=== PATIENT | female | born 1935 | race African-American/Black ===

== ENCOUNTER 2019-02-18 04:07 | Inpatient (IN) | payer MEDICARE, OTHER ==
[~2019-02-18] VITALS: Ht 167.6 cm; Wt 79.4 kg
[~2019-02-18 04:07] MED LIST: ATENOLOL25 MG ORAL; BENICAR40 MG ORAL; DONEPEZIL HCL10 M2 ORAL; PLAVIX75 MG ORAL; SERTRALINE HCL25 MG ORAL; ZOCOR20 MG ORAL
[2019-02-18 06:45] VITALS: BP 189/74
--- NOTE | 2019-02-18 06:45 | NUR ---
NURSE NOTES: Receive pt via ambulance from [facility] (Direct admit). Skin check done, skin intact. Pt in bed, nonverbal. In room air. VSS. B/L forearm IV sites 18g noted & s/l'd. Dumont noted draining yellow urine output, inserted at [place] for acute urinary retention. Dr. Gardiner already put in admission orders. Bed in lowest position, call light within reach. Will continue to monitor.
[2019-02-18] MEDS ORDERED: Miralax 17gm pkt ORAL PRN (07:15)
[2019-02-18] MEDS ORDERED: Albuterol/Ipratropium 3ml neb HHN PRN (07:15)
--- NOTE | 2019-02-18 07:30 | NUR ---
HAND-OFF: Report given to THERESE Zheng. Rounds done.
[2019-02-18 08:00] VITALS: BP 171/70
[2019-02-18 08:16] LABS: BASOPHILS % (AUTO) 0.5 % (0.0-2.0); EOSINOPHILS % (AUTO) 0.4 % (0.0-3.0); HEMATOCRIT 30.5 % (37.0-47.0); HEMOGLOBIN 10.2 G/DL (12.0-16.0); LYMPHOCYTES % (AUTO) 15.6 % (20.0-45.0); MEAN CORPUSCULAR VOLUME 90 FL (80-99); MONOCYTES % (AUTO) 9.3 % (1.0-10.0); NEUTROPHILS % (AUTO) 74.3 % (45.0-75.0); PLATELET COUNT 233 K/UL (150-450); RED BLOOD COUNT 3.38 M/UL (4.20-5.40); RED CELL DISTRIBUTION WIDTH 12.2 % (11.6-14.8); WHITE BLOOD COUNT 9.8 K/UL (4.8-10.8)
[2019-02-18 08:30] LABS: ALANINE AMINOTRANSFERASE 18 U/L (12-78); ALBUMIN 3.2 G/DL (3.4-5.0); ALBUMIN/GLOBULIN RATIO 0.8 (1.0-2.7); ALKALINE PHOSPHATASE 49 U/L (46-116); ANION GAP 10 mmol/L (5-15); ASPARTATE AMINO TRANSFERASE 20 U/L (15-37); BILIRUBIN,TOTAL 0.4 MG/DL (0.2-1.0); BLOOD UREA NITROGEN 27 mg/dL (7-18); CALCIUM 9.1 MG/DL (8.5-10.1); CARBON DIOXIDE 24 MMOL/L (21-32); CHLORIDE 112 MMOL/L (98-107); CREATININE 1.1 MG/DL (0.55-1.30); PHOSPHORUS 2.4 MG/DL (2.5-4.9); POTASSIUM 3.2 MMOL/L (3.5-5.1); SODIUM 146 MMOL/L (136-145)
[2019-02-18] MEDS ORDERED: Sertraline 50mg tab ORAL SCH (09:00)
--- NOTE | 2019-02-18 09:14 | NUR ---
NURSE NOTES: Dr. Gardiner ordered clonidine 0.1mg q6 prn when sbp more than 160. Noted and carried out.
[2019-02-18] MEDS: Donepezil 10mg tab ORAL SCH (09:24)
[2019-02-18] MEDS: Heparin 5000 units/ml inj SUBQ SCH ×2 (09:24→20:46)
[2019-02-18] MEDS: Atenolol 25mg tab ORAL SCH (09:24)
[2019-02-18] MEDS: cefTRIAXone 1 GM in D5W 55 ML IVPB SCH (10:33)
[2019-02-18 11:00] LABS: APPEARANCE,URINE SLIGHTLY CLOUDY; BILIRUBIN, URINE NEGATIVE (NEGATIVE); GLUCOSE, URINE (UA) NEGATIVE (NEGATIVE); KETONES,URINE NEGATIVE (NEGATIVE); LEUKOCYTE ESTERASE ,URINE 3+ (NEGATIVE); NITRITE,URINE NEGATIVE (NEGATIVE); PH,URINE 5 (4.5-8.0); PROTEIN,URINE 2+ (NEGATIVE); UROBILINOGEN,URINE NORMAL MG/DL (0.0-1.0)
[2019-02-18 11:08] LABS: COLOR,URINE YELLOW
[2019-02-18 12:00] VITALS: BP 149/58
--- NOTE | 2019-02-18 12:50 | Consultation ---
History of Present Illness General Date patient seen: Feb 18, 2019 Present Illness HPI 83 y/o F with hx of HTN, Dementia, ?seizure episoe on Jun 2018 is transferred from [place] to [place] on 02/18 for altered mental status and possible seizure activity. Per patient's patient was confused, altered and the he witnessed patient having shaking movements of arms. This happend at night 02/17; during the day patient seemed weaker. No report of fever, chills. n/v/d. Allergies: Coded Allergies: LEVONORGESTREL-ETH ESTRA (Verified Allergy, Unknown, 02/09/11) Medication History Scheduled Atenolol* (Tenormin*), 25 MG ORAL DAILY, (Reported) Clopidogrel Bisulfate* (Plavix*), 75 MG ORAL DAILY, (Reported) Donepezil Hcl* (Donepezil Hcl*), 10 MG ORAL DAILY, (Reported) Olmesartan Medoxomil (Benicar), 40 MG ORAL DAILY, (Reported) Sertraline Hcl* (Sertraline Hcl*), 25 MG ORAL DAILY, (Reported) Simvastatin (Zocor), 20 MG ORAL DAILY, (Reported) Patient History Healthcare decision maker Resuscitation status Full Code Advanced Directive on File Patient History Narrative Pmhx: as above Shx: reviewed Fhx: non contributory Review of Systems All Other Systems: negative except mentioned in HPI Physical Exam Physical Exam Narrative General Appearance: WD/WN Lines, tubes and drains: peripheral HEENT: normocephalic, atraumatic Neck: non-tender, supple Respiratory/Chest: chest wall non-tender, normal breath sounds Cardiovascular/Chest: normal peripheral pulses, normal rate Abdomen: normal bowel sounds Extremities: normal range of motion Last 24 Hour Vital Signs Date Time Temp Pulse Resp B/P (MAP) Pulse Ox O2 Delivery O2 Flow Rate FiO2 02/18/19 12:00 97.1 57 20 149/58 (88) 97 02/18/19 10:33 171/70 02/18/19 09:24 68 171/70 02/18/19 09:00 Room Air 02/18/19 08:00 98.0 68 17 171/70 (103) 99 02/18/19 07:41 Room Air 02/18/19 06:45 98.4 66 16 189/74 (112) 96 Laboratory Tests Test 02/18/19 07:48 02/18/19 10:30 White Blood Count 9.8 K/UL (4.8-10.8) Red Blood Count 3.38 M/UL (4.20-5.40) L Hemoglobin 10.2 G/DL (12.0-16.0) L Hematocrit 30.5 % (37.0-47.0) L Mean Corpuscular Volume 90 FL (80-99) Mean Corpuscular Hemoglobin 30.3 PG (27.0-31.0) Mean Corpuscular Hemoglobin Concent 33.6 G/DL (32.0-36.0) Red Cell Distribution Width 12.2 % (11.6-14.8) Platelet Count 233 K/UL (150-450) Mean Platelet Volume 4.8 FL (6.5-10.1) L Neutrophils (%) (Auto) 74.3 % (45.0-75.0) Lymphocytes (%) (Auto) 15.6 % (20.0-45.0) L Monocytes (%) (Auto) 9.3 % (1.0-10.0) Eosinophils (%) (Auto) 0.4 % (0.0-3.0) Basophils (%) (Auto) 0.5 % (0.0-2.0) Erythrocyte Sedimentation Rate 74 MM/HR (0-30) H Sodium Level 146 MMOL/L (136-145) H Potassium Level 3.2 MMOL/L (3.5-5.1) L Chloride Level 112 MMOL/L (98-107) H Carbon Dioxide Level 24 MMOL/L (21-32) Anion Gap 10 mmol/L (5-15) Blood Urea Nitrogen 27 mg/dL (7-18) H Creatinine 1.1 MG/DL (0.55-1.30) Estimat Glomerular Filtration Rate mL/min (>60) Glucose Level 110 MG/DL (74-106) H Calcium Level 9.1 MG/DL (8.5-10.1) Phosphorus Level 2.4 MG/DL (2.5-4.9) L Magnesium Level 1.9 MG/DL (1.8-2.4) Total Bilirubin 0.4 MG/DL (0.2-1.0) Aspartate Amino Transf (AST/SGOT) 20 U/L (15-37) Alanine Aminotransferase (ALT/SGPT) 18 U/L (12-78) Alkaline Phosphatase 49 U/L (46-116) C-Reactive Protein, Quantitative 1.6 mg/dL (0.00-0.90) H Total Protein 7.4 G/DL (6.4-8.2) Albumin 3.2 G/DL (3.4-5.0) L Globulin 4.2 g/dL Albumin/Globulin Ratio 0.8 (1.0-2.7) L Urine Color Yellow Urine Appearance Slightly cloudy Urine pH 5 (4.5-8.0) Urine Specific [place] 1.020 (1.005-1.035) Urine Protein 2+ (NEGATIVE) H Urine Glucose (UA) Negative (NEGATIVE) Urine Ketones Negative (NEGATIVE) Urine Blood 4+ (NEGATIVE) H Urine Nitrite Negative (NEGATIVE) Urine Bilirubin Negative (NEGATIVE) Urine Urobilinogen Normal MG/DL (0.0-1.0) Urine Leukocyte Esterase 3+ (NEGATIVE) H Urine RBC 5-10 /HPF (0 - 2) H Urine WBC 30-40 /HPF (0 - 2) H Urine Squamous Epithelial Cells Few /LPF (NONE/OCC) Urine Bacteria Few /HPF (NONE) Height (Feet): 5 Height (Inches): 6.00 Weight (Pounds): 175 Medications Current Medications Medications (Trade) Dose Ordered Sig/Gustavo Route PRN Reason Start Time Stop Time Status Last Admin Dose Admin Acetaminophen (Tylenol) 650 mg Q4H PRN ORAL fever 02/18/19 07:15 03/20/19 07:14 Albuterol/ Ipratropium (Albuterol/ Ipratropium) 3 ml Q4H PRN HHN Shortness of Breath 02/18/19 07:15 02/23/19 07:14 Atenolol (Tenormin) 25 mg DAILY ORAL 02/18/19 09:00 03/20/19 08:59 02/18/19 09:24 Ceftriaxone Sodium 1 gm/ Dextrose 55 ml @ 110 mls/hr Q24H IVPB 02/18/19 09:00 02/25/19 08:59 02/18/19 10:33 Clonidine HCl (Catapres Tab) 0.1 mg Q6H PRN ORAL SBP MORE THAN 160 02/18/19 10:15 03/20/19 10:14 02/18/19 10:33 Donepezil HCl (Aricept) 10 mg DAILY ORAL 02/18/19 09:00 03/20/19 08:59 02/18/19 09:24 Heparin Sodium (Porcine) (Heparin 5000 units/ml) 5,000 units EVERY 12 HOURS SUBQ 02/18/19 09:00 03/20/19 08:59 02/18/19 09:24 Ondansetron HCl (Zofran) 4 mg Q6H PRN IVP Nausea & Vomiting 02/18/19 07:15 03/20/19 07:14 Phenazopyridine HCl (Pyridium) 100 mg DAILY PRN ORAL dysuria 02/18/19 07:15 03/20/19 07:14 Polyethylene Glycol (Miralax) 17 gm DAILYPRN PRN ORAL Constipation 02/18/19 07:15 03/20/19 07:14 Sertraline HCl (Zoloft) 25 mg DAILY ORAL 02/18/19 09:00 03/20/19 08:59 02/18/19 09:24 Temazepam (Restoril) 15 mg HSPRN PRN ORAL Insomnia 02/18/19 07:15 02/25/19 07:14 Assessment/Plan Assessment/Plan: Abx: Ceftriaxone 02/18- Assessment: ?Seizure episode Probable UTI -u/a wbc 30-40, nit neg, leuk +3 Afebrile No leukocytosis Acute on chronic encephalopathy HTN Dementia Plan: -Continue empiric Ceftriaxone #1 pending urine culture -f/u cx -Monitor CBC/CMP, temperatures -aspiration precautions Thank you for this consultation. Will continue to follow along with you. Discussed with Erica Edwards M.D. Feb 18, 2019 12:50
--- NOTE | 2019-02-18 12:56 | Consultation ---
History of Present Illness General Date patient seen: Feb 18, 2019 Present Illness HPI 83 year old female with hx of end stage dementia, aphasic, htn, CVA, bed bound was taken to [place] with CC of seizure like activity of upper body. Pt is a poor historian. Pts daughter is at the bed site, who herself was NOT present when this happened. She had a change of mental status when this happened. Pt is wake now, smiling without understanding what is going on in her environment. Allergies: Coded Allergies: LEVONORGESTREL-ETH ESTRA (Verified Allergy, Unknown, 02/09/11) Medication History Scheduled Atenolol* (Tenormin*), 25 MG ORAL DAILY, (Reported) Clopidogrel Bisulfate* (Plavix*), 75 MG ORAL DAILY, (Reported) Donepezil Hcl* (Donepezil Hcl*), 10 MG ORAL DAILY, (Reported) Olmesartan Medoxomil (Benicar), 40 MG ORAL DAILY, (Reported) Sertraline Hcl* (Sertraline Hcl*), 25 MG ORAL DAILY, (Reported) Simvastatin (Zocor), 20 MG ORAL DAILY, (Reported) Patient History Healthcare decision maker Resuscitation status Full Code Advanced Directive on File Past Medical/Surgical History Past Medical/Surgical History: (1) HTN (hypertension) (2) COPD (3) arteriosclerosis Review of Systems All Other Systems: negative except mentioned in HPI Physical Exam General Appearance: WD/WN Lines, tubes and drains: peripheral HEENT: normocephalic, atraumatic Neck: non-tender, supple Respiratory/Chest: chest wall non-tender, normal breath sounds Breasts: no masses Cardiovascular/Chest: normal peripheral pulses, normal rate Abdomen: normal bowel sounds Genitourinary/Rectal: normal genital exam Extremities: normal range of motion Last 24 Hour Vital Signs Date Time Temp Pulse Resp B/P (MAP) Pulse Ox O2 Delivery O2 Flow Rate FiO2 02/18/19 12:00 97.1 57 20 149/58 (88) 97 02/18/19 10:33 171/70 02/18/19 09:24 68 171/70 02/18/19 09:00 Room Air 02/18/19 08:00 98.0 68 17 171/70 (103) 99 02/18/19 07:41 Room Air 9/6/19 06:45 98.4 66 16 189/74 (112) 96 Laboratory Tests Test 02/18/19 07:48 02/18/19 10:30 White Blood Count 9.8 K/UL (4.8-10.8) Red Blood Count 3.38 M/UL (4.20-5.40) L Hemoglobin 10.2 G/DL (12.0-16.0) L Hematocrit 30.5 % (37.0-47.0) L Mean Corpuscular Volume 90 FL (80-99) Mean Corpuscular Hemoglobin 30.3 PG (27.0-31.0) Mean Corpuscular Hemoglobin Concent 33.6 G/DL (32.0-36.0) Red Cell Distribution Width 12.2 % (11.6-14.8) Platelet Count 233 K/UL (150-450) Mean Platelet Volume 4.8 FL (6.5-10.1) L Neutrophils (%) (Auto) 74.3 % (45.0-75.0) Lymphocytes (%) (Auto) 15.6 % (20.0-45.0) L Monocytes (%) (Auto) 9.3 % (1.0-10.0) Eosinophils (%) (Auto) 0.4 % (0.0-3.0) Basophils (%) (Auto) 0.5 % (0.0-2.0) Erythrocyte Sedimentation Rate 74 MM/HR (0-30) H Sodium Level 146 MMOL/L (136-145) H Potassium Level 3.2 MMOL/L (3.5-5.1) L Chloride Level 112 MMOL/L (98-107) H Carbon Dioxide Level 24 MMOL/L (21-32) Anion Gap 10 mmol/L (5-15) Blood Urea Nitrogen 27 mg/dL (7-18) H Creatinine 1.1 MG/DL (0.55-1.30) Estimat Glomerular Filtration Rate mL/min (>60) Glucose Level 110 MG/DL (74-106) H Calcium Level 9.1 MG/DL (8.5-10.1) Phosphorus Level 2.4 MG/DL (2.5-4.9) L Magnesium Level 1.9 MG/DL (1.8-2.4) Total Bilirubin 0.4 MG/DL (0.2-1.0) Aspartate Amino Transf (AST/SGOT) 20 U/L (15-37) Alanine Aminotransferase (ALT/SGPT) 18 U/L (12-78) Alkaline Phosphatase 49 U/L (46-116) C-Reactive Protein, Quantitative 1.6 mg/dL (0.00-0.90) H Total Protein 7.4 G/DL (6.4-8.2) Albumin 3.2 G/DL (3.4-5.0) L Globulin 4.2 g/dL Albumin/Globulin Ratio 0.8 (1.0-2.7) L Urine Color Yellow Urine Appearance Slightly cloudy Urine pH 5 (4.5-8.0) Urine Specific [place] 1.020 (1.005-1.035) Urine Protein 2+ (NEGATIVE) H Urine Glucose (UA) Negative (NEGATIVE) Urine Ketones Negative (NEGATIVE) Urine Blood 4+ (NEGATIVE) H Urine Nitrite Negative (NEGATIVE) Urine Bilirubin Negative (NEGATIVE) Urine Urobilinogen Normal MG/DL (0.0-1.0) Urine Leukocyte Esterase 3+ (NEGATIVE) H Urine RBC 5-10 /HPF (0 - 2) H Urine WBC 30-40 /HPF (0 - 2) H Urine Squamous Epithelial Cells Few /LPF (NONE/OCC) Urine Bacteria Few /HPF (NONE) Height (Feet): 5 Height (Inches): 6.00 Weight (Pounds): 175 Medications Current Medications Medications (Trade) Dose Ordered Sig/Gustavo Route PRN Reason Start Time Stop Time Status Last Admin Dose Admin Acetaminophen (Tylenol) 650 mg Q4H PRN ORAL fever 02/18/19 07:15 03/20/19 07:14 Albuterol/ Ipratropium (Albuterol/ Ipratropium) 3 ml Q4H PRN HHN Shortness of Breath 02/18/19 07:15 02/23/19 07:14 Atenolol (Tenormin) 25 mg DAILY ORAL 02/18/19 09:00 03/20/19 08:59 02/18/19 09:24 Ceftriaxone Sodium 1 gm/ Dextrose 55 ml @ 110 mls/hr Q24H IVPB 02/18/19 09:00 02/25/19 08:59 02/18/19 10:33 Clonidine HCl (Catapres Tab) 0.1 mg Q6H PRN ORAL SBP MORE THAN 160 02/18/19 10:15 03/20/19 10:14 02/18/19 10:33 Donepezil HCl (Aricept) 10 mg DAILY ORAL 02/18/19 09:00 03/20/19 08:59 02/18/19 09:24 Heparin Sodium (Porcine) (Heparin 5000 units/ml) 5,000 units EVERY 12 HOURS SUBQ 02/18/19 09:00 03/20/19 08:59 02/18/19 09:24 Ondansetron HCl (Zofran) 4 mg Q6H PRN IVP Nausea & Vomiting 02/18/19 07:15 03/20/19 07:14 Phenazopyridine HCl (Pyridium) 100 mg DAILY PRN ORAL dysuria 02/18/19 07:15 03/20/19 07:14 Polyethylene Glycol (Miralax) 17 gm DAILYPRN PRN ORAL Constipation 02/18/19 07:15 03/20/19 07:14 Sertraline HCl (Zoloft) 25 mg DAILY ORAL 02/18/19 09:00 03/20/19 08:59 02/18/19 09:24 Temazepam (Restoril) 15 mg HSPRN PRN ORAL Insomnia 02/18/19 07:15 02/25/19 07:14 Assessment/Plan Problem List: (1) UTI (urinary tract infection) ICD Codes: N39.0 - Urinary tract infection, site not specified SNOMED: 85999906 (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
--- NOTE | 2019-02-18 13:17 | NUR ---
NURSE NOTES: K+ is 3.2. Dr. Gardiner is aware.
--- NOTE | 2019-02-18 13:18 | NUR ---
CASE MANAGEMENT:REVIEW DIRECT ADMIT FROM [facility] SI: ACUTE METABOLIC ENCEPHALOPATHY TONIC CLONIC SEIZURE 97.1 57 20 149/58 97% ON RA h/h-10.2/30.5 K-3.2 BUN+27 IS: ATENOLOL PO QD ARICEPT PO QD ZOLOFT PO QD HEPARIN SQ Q12 IV ROCEPHIN Q24 : MED/SURG STATUS PLAN: SEIZURE PRECAUTIONS NEURO CHECKS Q4HRS
--- NOTE | 2019-02-18 15:52 | History & Physical ---
History and Physical History & Physicial Jose Guadalupe Marlow MD Feb 18, 2019 15:52
[2019-02-18 16:00] VITALS: BP 160/64
[2019-02-18] MEDS ORDERED: KCL IV SCH (16:00)
[2019-02-18] MEDS ORDERED: D5 IV SCH (16:00)
[2019-02-18] MEDS ORDERED: [UNRECOGNIZED DRUG - OTHER] IV SCH (16:00)
--- NOTE | 2019-02-18 16:00 | NUR ---
NURSE NOTES: Patient is off the unit for MRI of brain.
--- NOTE | 2019-02-18 16:38 | NUR ---
NURSE NOTES: Got phone call from radiology regarding that pt has small stroke on left side per MRI of brain. Dr. Marlow was notified and MD ordered aspirin 81mg daily, bedside swallow study. Noted and carried out.
--- NOTE | 2019-02-18 16:48 | Diagnostic Imaging Report ---
Indication: Altered mental status Technique: The head was imaged in a 1.5 Kylee magnet. Sequences obtained include sagittal and axial T1 FLAIR, axial T2 fast spin echo with fat saturation, axial T2 FLAIR, diffusion and ADC map. Comparison: None There is a less than 1 cm focus of diffusion restriction within the left occipital region. This is not associated with any significant edema or mass effect. There is moderate atrophy of the brain and fairly extensive white matter T2 hyperintense signal. There is no acute bleed. There is mucosal thickening within the ethmoid sinus. Corpus callosum and sella appear normal. Osseous bone marrow signal appears unremarkable. IMPRESSION: Tiny acute CVA in the left occipital white matter. No significant mass effect or edema. No evidence of hemorrhage. Moderate atrophy of the brain. Extensive chronic small vessel disease involving periventricular white matter. Critical value communication. Findings were discussed via telephone with floor nurse on 3 E. 4:40 PM 02/18/2019. The referring physician will be notified of the results.
--- NOTE | 2019-02-18 16:48 | NUR ---
NURSE NOTES: Patient came back from MRI of brain.
[2019-02-18] MEDS ORDERED: Potassium Phosphate 15 MM in NS 275 ML IV ONE (17:00)
--- NOTE | 2019-02-18 17:30 | History and Physical Report ---
DATE OF ADMISSION: 02/18/2019 CHIEF COMPLAINT: Altered mental status. HISTORY OF PRESENT ILLNESS: This is an 83-year-old very delightful female with past medical history significant for hypertension, dyslipidemia, prior history of stroke, and Alzheimer dementia, who has presented initially to [facility] after had complained about altered mental status. The patient had a history of seizure, 1 episode in December and presented to the emergency room with altered mental status. The patient had a negative workup, returned back to the baseline mentation. The patient tonight was witnessed in the bed having a seizure-like activity, tonic clonic activity of bilateral upper extremity. After the seizure-like activity, the patient had become more altered. called 911 and EMS checked the blood glucose that was initially 130 and then subsequently, the patient was transferred to the emergency room. Shortly after initial evaluation in the emergency department at [facility], the patient was worked up for altered mental status possibly due to the seizure activity versus urinary tract infection. PAST MEDICAL HISTORY/PAST SURGICAL HISTORY: As above. History of hypertension, dyslipidemia, stroke, dementia, ? history of seizure disorder x1 episode in June of 2018. MEDICATIONS: At home significant for atenolol, Plavix, Aricept, Benicar, sertraline, and simvastatin. ALLERGIES: Levonorgestrel. SOCIAL HISTORY: No smoking, alcohol, or drugs. FAMILY HISTORY: Noncontributory. REVIEW OF SYSTEMS: Very limited secondary to the patient's status. She is altered, however, as per emergency physician documentation no fever or chills was noted. PHYSICAL EXAMINATION: VITAL SIGNS: On admission from [place], blood pressure 146/78, pulse of 76, respirations 20, and temperature 98.8. GENERAL: The patient is sleepy, not responsive, and cannot follow commands. HEAD AND NECK: Pupils are reactive to light. Anicteric. Neck was supple. No JVD. LUNGS: Good air entry. No wheezing or rales. Decreased air in the bases. HEART: S1, S2. Regular rhythm. Systolic ejection murmur in the left sternal border was noted. ABDOMEN: Soft, nondistended, and nontender. Positive bowel sounds. EXTREMITIES: No cyanosis, clubbing, or edema. NEUROLOGIC: Limited secondary to the patient's status. The patient is unable to follow commands. However, she does withdraw from pain and sensory, unable to obtain or motor. The patient is spontaneously moving extremities still. LABORATORY DATA: Laboratory from admission to [facility] was noted to have sodium 146, potassium 3.2, chloride 112, bicarb 24, BUN 27, creatinine 1.1, glucose is 110, calcium is 9.1, phosphorus 2.4. Magnesium is 1.9. AST of 20, ALT of 18, and alkaline phosphatase 49. Total protein 7.4. UA is +2 protein, +4 blood, +3 leukocytes, 5 to 10 rbc, 30 to 40 wbc. WBC of 9.8, hemoglobin 10, hematocrit 30, and platelets is 233,000. The patient had a imaging study done at [facility], which noted that CT of the head was essentially unremarkable. EKG was done at [facility] noted normal sinus rhythm, ventricular rate 74, left atrial fascicular block, and left ventricular hypertrophy. Q-wave was noted in leads [address]-elevation was identified. ASSESSMENT: 1. Altered mental status, most likely secondary to toxic metabolic encephalopathy most likely secondary to infection such as urinary tract infection, however, cannot rule out recurrent seizure. 2. Hypertension. 3. Acute UTI. 4. Dyslipidemia. 5. Alzheimer dementia. PLAN: Admit the patient to medical floor. We will follow up with Dr. Gardiner's recommendation from Pulmonary Critical Care and Dr. Brown from Infectious Disease. Follow up with the cultures. Broad-spectrum antibiotic Rocephin was started. Code status at this time is Full Code and we will monitor. We will consider getting an MRI of the brain. Jose Guadalupe Marlow M.D. DR: MIKE JOB#: [id number] CC:
[2019-02-18 18:32] VITALS: BP 152/57
--- NOTE | 2019-02-18 19:33 | NUR ---
HAND-OFF: Report given to THERESE Cerna.
--- NOTE | 2019-02-18 19:35 | NUR ---
NURSE NOTES: Received report from THERESE Giles and rounds made with outgoing nurse. Received pt in bed, sleeping, arousable by tactile stimuli, awake, open eyes, non-verbal, no distress noted, at bedside. IV L FA and R FA patent and intact. Dumont inplace draining yellow color output. Bed in lowest position and locked, side rails up x 2, call light within reach. Will continue to monitor.
[2019-02-18 20:00] VITALS: BP 168/54
--- NOTE | 2019-02-18 20:40 | NUR ---
NURSE NOTES: B/P 168/54, hr 50 no distress noted. Clonidine 0.1mg PO every 6 hours last given at 1727, not due yet. Paged Dr. Gardiner, awaiting for reply.
--- NOTE | 2019-02-18 21:15 | NUR ---
NURSE NOTES: Dr. Gardiner responded, no orders given, he just said "okay". Will continue to monitor.
--- NOTE | 2019-02-18 23:46 | NUR ---
NURSE NOTES: B/P 176/62, HR 53, no distress noted. Clonidine 0.1mg PO given. Will continue to monitor.
[2019-02-19] VITALS (10 sets, daily range): BP systolic 159–191; BP diastolic 55–71
--- NOTE | 2019-02-19 05:40 | NUR ---
NURSE NOTES: B/P 163/60, HR 57 no distress noted. Clonidine 0.1mg PO given. Will continue to monitor.
[2019-02-19 06:47] LABS: BASOPHILS % (AUTO) 1.3 % (0.0-2.0); EOSINOPHILS % (AUTO) 2.4 % (0.0-3.0); HEMATOCRIT 30.1 % (37.0-47.0); HEMOGLOBIN 9.5 G/DL (12.0-16.0); LYMPHOCYTES % (AUTO) 33.6 % (20.0-45.0); MEAN CORPUSCULAR VOLUME 93 FL (80-99); MONOCYTES % (AUTO) 8.5 % (1.0-10.0); NEUTROPHILS % (AUTO) 54.2 % (45.0-75.0); PLATELET COUNT 215 K/UL (150-450); RED BLOOD COUNT 3.24 M/UL (4.20-5.40); RED CELL DISTRIBUTION WIDTH 12.5 % (11.6-14.8); WHITE BLOOD COUNT 7.2 K/UL (4.8-10.8)
--- NOTE | 2019-02-19 06:50 | NUR ---
NURSE NOTES: Rec-check B/P 159/62. HR 54. Pt is awake, no distress noted. Will continue to monitor.
--- NOTE | 2019-02-19 07:00 | NUR ---
NURSE NOTES: Received call from the lab Troponin level 0.068. Paged Dr. Gardiner, awaiting for call back. Will endorse to next nurse.
[2019-02-19 07:05] LABS: ALANINE AMINOTRANSFERASE 18 U/L (12-78); ALBUMIN 3.1 G/DL (3.4-5.0); ALBUMIN/GLOBULIN RATIO 0.8 (1.0-2.7); ALKALINE PHOSPHATASE 39 U/L (46-116); ANION GAP 10 mmol/L (5-15); ASPARTATE AMINO TRANSFERASE 25 U/L (15-37); BILIRUBIN,TOTAL 0.4 MG/DL (0.2-1.0); BLOOD UREA NITROGEN 27 mg/dL (7-18); CALCIUM 9.2 MG/DL (8.5-10.1); CARBON DIOXIDE 25 MMOL/L (21-32); CHLORIDE 115 MMOL/L (98-107); CREATININE 1.1 MG/DL (0.55-1.30); POTASSIUM 3.7 MMOL/L (3.5-5.1); SODIUM 150 MMOL/L (136-145)
[2019-02-19 07:08] LABS: PHOSPHORUS 3.4 MG/DL (2.5-4.9)
--- NOTE | 2019-02-19 07:10 | NUR ---
NURSE NOTES: Dr. Gardiner replied no order given, he said "okay". Will endorse to next nurse.
--- NOTE | 2019-02-19 07:12 | Pulmonology Progress Note ---
Assessment/Plan Problems: (1) UTI (urinary tract infection) (2) Tonic clonic seizures (3) Acute metabolic encephalopathy (4) COPD (5) HTN (hypertension) Assessment/Plan no new complains check cultures respiratory treatment monitor BP dvt prophylaxis Subjective ROS Limited/Unobtainable: No Allergies: Coded Allergies: LEVONORGESTREL-ETH ESTRA (Verified Allergy, Unknown, 02/09/11) Objective Last 24 Hour Vital Signs Date Time Temp Pulse Resp B/P (MAP) Pulse Ox O2 Delivery O2 Flow Rate FiO2 02/19/19 06:50 54 159/62 (94) 02/19/19 06:02 163/60 02/19/19 05:40 97.9 57 17 163/60 (94) 98 02/19/19 01:00 54 162/56 (91) 02/19/19 00:00 98.7 53 17 179/62 (101) 99 02/18/19 23:40 179/62 02/18/19 21:00 Room Air 02/18/19 20:00 98.1 50 16 168/54 (92) 96 02/18/19 18:32 56 152/57 (88) 02/18/19 17:27 160/64 02/18/19 16:00 98.2 59 17 160/64 (96) 97 02/18/19 12:00 97.1 57 20 149/58 (88) 97 02/18/19 10:33 171/70 02/18/19 09:24 68 171/70 02/18/19 09:00 Room Air 02/18/19 08:00 98.0 68 17 171/70 (103) 99 02/18/19 07:41 Room Air Intake and Output 02/18/19 02/19/19 19:00 07:00 Intake Total 536.667 ml 958.335 ml Output Total 300 ml 300 ml Balance 236.667 ml 658.335 ml Intake Oral 360 ml 50 ml IV Total 176.667 ml 908.335 ml Output Urine Total 300 ml 300 ml General Appearance: WD/WN HEENT: atraumatic, anicteric Respiratory/Chest: chest wall non-tender, lungs clear Breasts: no masses Cardiovascular: normal peripheral pulses Abdomen: normal bowel sounds, soft, non tender, no scars Microbiology Date/Time Source Procedure Growth Status 02/18/19 10:30 Urine,Clean Catch Urine Culture - Preliminary NO GROWTH AFTER 24 HOURS Resulted Laboratory Tests 02/18/19 07:48: White Blood Count 9.8, Red Blood Count 3.38L, Hemoglobin 10.2L, Hematocrit 30.5L , Mean Corpuscular Volume 90, Mean Corpuscular Hemoglobin 30.3, Mean Corpuscular Hemoglobin Concent 33.6, Red Cell Distribution Width 12.2, Platelet Count 233, Mean Platelet Volume 4.8L, Neutrophils (%) (Auto) 74.3, Lymphocytes ( %) (Auto) 15.6L, Monocytes (%) (Auto) 9.3, Eosinophils (%) (Auto) 0.4, Basophils (%) (Auto) 0.5, Erythrocyte Sedimentation Rate 74H, Sodium Level 146H , Potassium Level 3.2L, Chloride Level 112H, Carbon Dioxide Level 24, Anion Gap 10, Blood Urea Nitrogen 27H, Creatinine 1.1, Estimat Glomerular Filtration Rate , Glucose Level 110H, Calcium Level 9.1, Phosphorus Level 2.4L, Magnesium Level 1.9, Total Bilirubin 0.4, Aspartate Amino Transf (AST/SGOT) 20, Alanine Aminotransferase (ALT/SGPT) 18, Alkaline Phosphatase 49, C-Reactive Protein, Quantitative 1.6H, Total Protein 7.4, Albumin 3.2L, Globulin 4.2, Albumin/ Globulin Ratio 0.8L 02/18/19 10:30: Urine Color Yellow, Urine Appearance Slightly cloudy, Urine pH 5, Urine Specific [place] 1.020, Urine Protein 2+H, Urine Glucose (UA) Negative, Urine Ketones Negative, Urine Blood 4+H, Urine Nitrite Negative, Urine Bilirubin Negative, Urine Urobilinogen Normal, Urine Leukocyte Esterase 3+H, Urine RBC 5- 10H, Urine WBC 30-40H, Urine Squamous Epithelial Cells Few, Urine Bacteria Few 02/19/19 05:25: White Blood Count 7.2, Red Blood Count 3.24L, Hemoglobin 9.5L, Hematocrit 30.1L , Mean Corpuscular Volume 93, Mean Corpuscular Hemoglobin 29.3, Mean Corpuscular Hemoglobin Concent 31.6L, Red Cell Distribution Width 12.5, Platelet Count 215, Mean Platelet Volume 4.9L, Neutrophils (%) (Auto) 54.2, Lymphocytes (%) (Auto) 33.6, Monocytes (%) (Auto) 8.5, Eosinophils (%) (Auto) 2.4, Basophils (%) (Auto) 1.3, Sodium Level 150H, Potassium Level 3.7, Chloride Level 115H, Carbon Dioxide Level 25, Anion Gap 10, Blood Urea Nitrogen 27H, Creatinine 1.1, Estimat Glomerular Filtration Rate , Glucose Level 101, Calcium Level 9.2, Phosphorus Level 3.4, Magnesium Level 2.1, Total Bilirubin 0.4, Aspartate Amino Transf (AST/SGOT) 25, Alanine Aminotransferase (ALT/SGPT) 18, Alkaline Phosphatase 39L, Total Protein 6.9, Albumin 3.1L, Globulin 3.8, Albumin /Globulin Ratio 0.8L, Troponin I 0.068H Current Medications Medications (Trade) Dose Ordered Sig/Gustavo Route PRN Reason Start Time Stop Time Status Last Admin Dose Admin Acetaminophen (Tylenol) 650 mg Q4H PRN ORAL fever 02/18/19 07:15 03/20/19 07:14 Albuterol/ Ipratropium (Albuterol/ Ipratropium) 3 ml Q4H PRN HHN Shortness of Breath 02/18/19 07:15 02/23/19 07:14 Aspirin (ASA) 81 mg DAILY ORAL 02/19/19 09:00 03/21/19 08:59 Atenolol (Tenormin) 25 mg DAILY ORAL 02/18/19 09:00 03/20/19 08:59 02/18/19 09:24 Ceftriaxone Sodium 1 gm/ Dextrose 55 ml @ 110 mls/hr Q24H IVPB 02/18/19 09:00 02/25/19 08:59 02/18/19 10:33 Clonidine HCl (Catapres Tab) 0.1 mg Q6H PRN ORAL SBP MORE THAN 160 02/18/19 10:15 03/20/19 10:14 02/19/19 06:02 Donepezil HCl (Aricept) 10 mg DAILY ORAL 02/18/19 09:00 03/20/19 08:59 02/18/19 09:24 Heparin Sodium (Porcine) (Heparin 5000 units/ml) 5,000 units EVERY 12 HOURS SUBQ 02/18/19 09:00 03/20/19 08:59 02/18/19 20:46 Ondansetron HCl (Zofran) 4 mg Q6H PRN IVP Nausea & Vomiting 02/18/19 07:15 03/20/19 07:14 Phenazopyridine HCl (Pyridium) 100 mg DAILY PRN ORAL dysuria 02/18/19 07:15 03/20/19 07:14 Polyethylene Glycol (Miralax) 17 gm DAILYPRN PRN ORAL Constipation 02/18/19 07:15 03/20/19 07:14 Temazepam (Restoril) 15 mg HSPRN PRN ORAL Insomnia 02/18/19 07:15 02/25/19 07:14 Chanel Gardiner MD Feb 19, 2019 07:12
--- NOTE | 2019-02-19 07:30 | NUR ---
HAND-OFF: Report given to THERESE Noel. Pt in stable condition.
--- NOTE | 2019-02-19 07:35 | NUR ---
NURSE NOTES: Patient lying in bed awake. No complain of pain or distress at this time. IV dressing intact and dry. Dumont catheter patent and draining well. Bed lowest position. Call light within reach. Will continue to monitor.
[2019-02-19] MEDS: Donepezil 10mg tab ORAL SCH (09:55)
[2019-02-19] MEDS: Atenolol 25mg tab ORAL SCH (09:55)
[2019-02-19] MEDS: Aspirin Baby 81mg ORAL SCH (09:55)
[2019-02-19] MEDS: cefTRIAXone 1 GM in D5W 55 ML IVPB SCH (09:56)
[2019-02-19] MEDS: Heparin 5000 units/ml inj SUBQ SCH ×2 (09:57→20:31)
--- NOTE | 2019-02-19 12:11 | Infectious Diseases Prog Note ---
Assessment/Plan Assessment/Plan Abx: Ceftriaxone 02/18- Assessment: ?Seizure episode Probable UTI -u/a wbc 30-40, nit neg, leuk +3 Afebrile No leukocytosis Acute on chronic encephalopathy HTN Dementia Plan: -Continue empiric Ceftriaxone #2/3 pending urine culture -f/u cx -Monitor CBC/CMP, temperatures -aspiration precautions Thank you for this consultation. Will continue to follow along with you. Subjective Allergies: Coded Allergies: LEVONORGESTREL-ETH ESTRA (Verified Allergy, Unknown, 02/09/11) Subjective Afebrile No Leukocytosis WBCs down to 7 Objective Vital Signs Last 24 Hour Vital Signs Date Time Temp Pulse Resp B/P (MAP) Pulse Ox O2 Delivery O2 Flow Rate FiO2 02/19/19 09:55 51 174/59 02/19/19 09:00 Room Air 02/19/19 08:00 97.1 51 18 174/59 (97) 97 02/19/19 06:50 54 159/62 (94) 02/19/19 06:02 163/60 02/19/19 05:40 97.9 57 17 163/60 (94) 98 02/19/19 01:00 54 162/56 (91) 02/19/19 00:00 98.7 53 17 179/62 (101) 99 02/18/19 23:40 179/62 02/18/19 21:00 Room Air 02/18/19 20:00 98.1 50 16 168/54 (92) 96 02/18/19 18:32 56 152/57 (88) 02/18/19 17:27 160/64 02/18/19 16:00 98.2 59 17 160/64 (96) 97 Height (Feet): 5 Height (Inches): 6.00 Weight (Pounds): 175 Objective General Appearance: NAD HEENT: normocephalic, atraumatic, MMM, EOMI Respiratory/Chest: CTAB , No W Cardiovascular/Chest: RRR, S,1 S2 Abdomen: normal bowel sounds, Soft , Not tender Microbiology Date/Time Source Procedure Growth Status 02/18/19 10:30 Urine,Clean Catch Urine Culture - Preliminary NO GROWTH AFTER 24 HOURS Resulted Laboratory Tests Test 02/19/19 05:25 White Blood Count 7.2 K/UL (4.8-10.8) Red Blood Count 3.24 M/UL (4.20-5.40) L Hemoglobin 9.5 G/DL (12.0-16.0) L Hematocrit 30.1 % (37.0-47.0) L Mean Corpuscular Volume 93 FL (80-99) Mean Corpuscular Hemoglobin 29.3 PG (27.0-31.0) Mean Corpuscular Hemoglobin Concent 31.6 G/DL (32.0-36.0) L Red Cell Distribution Width 12.5 % (11.6-14.8) Platelet Count 215 K/UL (150-450) Mean Platelet Volume 4.9 FL (6.5-10.1) L Neutrophils (%) (Auto) 54.2 % (45.0-75.0) Lymphocytes (%) (Auto) 33.6 % (20.0-45.0) Monocytes (%) (Auto) 8.5 % (1.0-10.0) Eosinophils (%) (Auto) 2.4 % (0.0-3.0) Basophils (%) (Auto) 1.3 % (0.0-2.0) Sodium Level 150 MMOL/L (136-145) H Potassium Level 3.7 MMOL/L (3.5-5.1) Chloride Level 115 MMOL/L (98-107) H Carbon Dioxide Level 25 MMOL/L (21-32) Anion Gap 10 mmol/L (5-15) Blood Urea Nitrogen 27 mg/dL (7-18) H Creatinine 1.1 MG/DL (0.55-1.30) Estimat Glomerular Filtration Rate mL/min (>60) Glucose Level 101 MG/DL (74-106) Calcium Level 9.2 MG/DL (8.5-10.1) Phosphorus Level 3.4 MG/DL (2.5-4.9) Magnesium Level 2.1 MG/DL (1.8-2.4) Total Bilirubin 0.4 MG/DL (0.2-1.0) Aspartate Amino Transf (AST/SGOT) 25 U/L (15-37) Alanine Aminotransferase (ALT/SGPT) 18 U/L (12-78) Alkaline Phosphatase 39 U/L (46-116) L Troponin I 0.068 ng/mL (0.000-0.056) Total Protein 6.9 G/DL (6.4-8.2) Albumin 3.1 G/DL (3.4-5.0) L Globulin 3.8 g/dL Albumin/Globulin Ratio 0.8 (1.0-2.7) L Current Medications Medications (Trade) Dose Ordered Sig/Gustavo Route PRN Reason Start Time Stop Time Status Last Admin Dose Admin Acetaminophen (Tylenol) 650 mg Q4H PRN ORAL fever 02/18/19 07:15 03/20/19 07:14 Albuterol/ Ipratropium (Albuterol/ Ipratropium) 3 ml Q4H PRN HHN Shortness of Breath 02/18/19 07:15 02/23/19 07:14 Aspirin (ASA) 81 mg DAILY ORAL 02/19/19 09:00 03/21/19 08:59 02/19/19 09:55 Atenolol (Tenormin) 25 mg DAILY ORAL 02/18/19 09:00 03/20/19 08:59 02/19/19 09:55 Ceftriaxone Sodium 1 gm/ Dextrose 55 ml @ 110 mls/hr Q24H IVPB 02/18/19 09:00 02/25/19 08:59 02/19/19 09:56 Clonidine HCl (Catapres Tab) 0.1 mg Q6H PRN ORAL SBP MORE THAN 160 02/18/19 10:15 03/20/19 10:14 02/19/19 06:02 Donepezil HCl (Aricept) 10 mg DAILY ORAL 02/18/19 09:00 03/20/19 08:59 02/19/19 09:55 Heparin Sodium (Porcine) (Heparin 5000 units/ml) 5,000 units EVERY 12 HOURS SUBQ 02/18/19 09:00 03/20/19 08:59 02/19/19 09:57 Ondansetron HCl (Zofran) 4 mg Q6H PRN IVP Nausea & Vomiting 02/18/19 07:15 03/20/19 07:14 Phenazopyridine HCl (Pyridium) 100 mg DAILY PRN ORAL dysuria 02/18/19 07:15 03/20/19 07:14 Polyethylene Glycol (Miralax) 17 gm DAILYPRN PRN ORAL Constipation 02/18/19 07:15 03/20/19 07:14 Temazepam (Restoril) 15 mg HSPRN PRN ORAL Insomnia 02/18/19 07:15 02/25/19 07:14 Adan Schwartz MD Feb 19, 2019 12:10
--- NOTE | 2019-02-19 13:48 | Internal Med Progress Note ---
Subjective Date of Service: Feb 19, 2019 Physician Name eKv Alegre Attending Physician Jose Guadalupe Marlow MD Current Medications Medications (Trade) Dose Ordered Sig/Gustavo Route PRN Reason Start Time Stop Time Status Last Admin Dose Admin Acetaminophen (Tylenol) 650 mg Q4H PRN ORAL fever 02/18/19 07:15 03/20/19 07:14 Albuterol/ Ipratropium (Albuterol/ Ipratropium) 3 ml Q4H PRN HHN Shortness of Breath 02/18/19 07:15 02/23/19 07:14 Aspirin (ASA) 81 mg DAILY ORAL 02/19/19 09:00 03/21/19 08:59 02/19/19 09:55 Atenolol (Tenormin) 25 mg DAILY ORAL 02/18/19 09:00 03/20/19 08:59 02/19/19 09:55 Ceftriaxone Sodium 1 gm/ Dextrose 55 ml @ 110 mls/hr Q24H IVPB 02/18/19 09:00 02/25/19 08:59 02/19/19 09:56 Clonidine HCl (Catapres Tab) 0.1 mg Q6H PRN ORAL SBP MORE THAN 160 02/18/19 10:15 03/20/19 10:14 02/19/19 13:06 Donepezil HCl (Aricept) 10 mg DAILY ORAL 02/18/19 09:00 03/20/19 08:59 02/19/19 09:55 Heparin Sodium (Porcine) (Heparin 5000 units/ml) 5,000 units EVERY 12 HOURS SUBQ 02/18/19 09:00 03/20/19 08:59 02/19/19 09:57 Ondansetron HCl (Zofran) 4 mg Q6H PRN IVP Nausea & Vomiting 02/18/19 07:15 03/20/19 07:14 Phenazopyridine HCl (Pyridium) 100 mg DAILY PRN ORAL dysuria 02/18/19 07:15 03/20/19 07:14 Polyethylene Glycol (Miralax) 17 gm DAILYPRN PRN ORAL Constipation 02/18/19 07:15 03/20/19 07:14 Temazepam (Restoril) 15 mg HSPRN PRN ORAL Insomnia 02/18/19 07:15 02/25/19 07:14 Allergies: Coded Allergies: LEVONORGESTREL-ETH ESTRA (Verified Allergy, Unknown, 02/09/11) ROS Limited/Unobtainable: Yes Subjective 83 YO F admitted with altered mental status. Now UTI. Cover for Int [facility]-DR Marlow Objective Last Vital Signs Date Time Temp Pulse Resp B/P (MAP) Pulse Ox O2 Delivery O2 Flow Rate FiO2 02/19/19 13:06 183/67 02/19/19 12:00 97.6 53 18 96 02/19/19 09:00 Room Air Laboratory Tests Test 02/19/19 05:25 White Blood Count 7.2 K/UL (4.8-10.8) Red Blood Count 3.24 M/UL (4.20-5.40) L Hemoglobin 9.5 G/DL (12.0-16.0) L Hematocrit 30.1 % (37.0-47.0) L Mean Corpuscular Volume 93 FL (80-99) Mean Corpuscular Hemoglobin 29.3 PG (27.0-31.0) Mean Corpuscular Hemoglobin Concent 31.6 G/DL (32.0-36.0) L Red Cell Distribution Width 12.5 % (11.6-14.8) Platelet Count 215 K/UL (150-450) Mean Platelet Volume 4.9 FL (6.5-10.1) L Neutrophils (%) (Auto) 54.2 % (45.0-75.0) Lymphocytes (%) (Auto) 33.6 % (20.0-45.0) Monocytes (%) (Auto) 8.5 % (1.0-10.0) Eosinophils (%) (Auto) 2.4 % (0.0-3.0) Basophils (%) (Auto) 1.3 % (0.0-2.0) Sodium Level 150 MMOL/L (136-145) H Potassium Level 3.7 MMOL/L (3.5-5.1) Chloride Level 115 MMOL/L (98-107) H Carbon Dioxide Level 25 MMOL/L (21-32) Anion Gap 10 mmol/L (5-15) Blood Urea Nitrogen 27 mg/dL (7-18) H Creatinine 1.1 MG/DL (0.55-1.30) Estimat Glomerular Filtration Rate mL/min (>60) Glucose Level 101 MG/DL (74-106) Calcium Level 9.2 MG/DL (8.5-10.1) Phosphorus Level 3.4 MG/DL (2.5-4.9) Magnesium Level 2.1 MG/DL (1.8-2.4) Total Bilirubin 0.4 MG/DL (0.2-1.0) Aspartate Amino Transf (AST/SGOT) 25 U/L (15-37) Alanine Aminotransferase (ALT/SGPT) 18 U/L (12-78) Alkaline Phosphatase 39 U/L (46-116) L Troponin I 0.068 ng/mL (0.000-0.056) Total Protein 6.9 G/DL (6.4-8.2) Albumin 3.1 G/DL (3.4-5.0) L Globulin 3.8 g/dL Albumin/Globulin Ratio 0.8 (1.0-2.7) L Microbiology Date/Time Source Procedure Growth Status 02/18/19 10:30 Urine,Clean Catch Urine Culture - Preliminary NO GROWTH AFTER 24 HOURS Resulted Intake and Output 02/18/19 02/19/19 18:59 06:59 Intake Total 536.667 ml 958.335 ml Output Total 300 ml 300 ml Balance 236.667 ml 658.335 ml Intake Oral 360 ml 50 ml IV Total 176.667 ml 908.335 ml Output Urine Total 300 ml 300 ml Objective PHYSICAL EXAMINATION: GENERAL: The patient is sleepy, not responsive, and cannot follow commands. HEAD AND NECK: Pupils are reactive to light. Anicteric. Neck was supple. No JVD. LUNGS: Good air entry. No wheezing or rales. Decreased air in the bases. HEART: S1, S2. Regular rhythm. Systolic ejection murmur in the left sternal border was noted. ABDOMEN: Soft, nondistended, and nontender. Positive bowel sounds. EXTREMITIES: No cyanosis, clubbing, or edema. NEUROLOGIC: Limited secondary to the patient's status. The patient is unable to follow commands. However, she does withdraw from pain and sensory, unable to obtain or motor. The patient is spontaneously moving extremities still. Assessment/Plan Assessment/Plan ASSESSMENT: 1. Altered mental status, most likely secondary to toxic metabolic encephalopathy most likely secondary to infection such as urinary tract infection, however, cannot rule out recurrent seizure. 2. Hypertension. 3. Acute UTI. 4. Dyslipidemia. 5. Alzheimer dementia. 6. Acute left occipital cerebral vascular accident 7. Hypernatremia PLAN: 1. Admit the patient to medical floor. 2. See Dr. Gradiner's recommendation from Pulmonary Critical Care 3. Continue ceftriaxone per Dr. Brown from Infectious Disease. 4. Follow up urine culture result from [facility]-Urine culture here=no growth 5. Code status at this time is Full Code 6. MRI of the brain=Acute CVA. await neurology consult. 7. /2 NS + 20 meq KCL/L @ 50 cc/hr Kev Alegre MD Feb 19, 2019 13:48
--- NOTE | 2019-02-19 14:00 | NUR ---
NURSE NOTES: Given PRN blood pressure medication but blood pressure still high. Notified and new order received. Order read back and carried out.
[2019-02-19] MEDS: 1/2NS w/KCl 20mEq 1000ml 1,000 ML IV SCH (15:01)
--- NOTE | 2019-02-19 15:06 | NUR ---
PT Note PT jaswant completed, treatment initiated. Patient has muscle weakness and decreased balance. Patient needs PT to increase her muscle strength and balance to improve her functional mobility to [facility] and be able to return home. Addendum: 02/19/19 at 1508 by OLVIN THAO PT Amended: Links added.
--- NOTE | 2019-02-19 19:30 | NUR ---
NURSE NOTES: Received report from THERESE Noel and rounds made with outgoing nurse. Received pt in bed, awake, alert, no distress noted. IV L FA and R FA patent and intact. IV fluid infusing as ordered. Dumont to gravity yellow color output. at bedside. Bed in lowest position and locked, side rails up x 2, call light within reach. Will continue to monitor.
--- NOTE | 2019-02-19 19:30 | NUR ---
HAND-OFF: Report given to Nehemiah SALEH. Patient in stable condition.
--- NOTE | 2019-02-19 20:20 | NUR ---
NURSE NOTES: B/P 163/55, HR 52. Pt is awake, alert, no distress noted. Will give Clonidine 0.2mg for B/P/ Will continue to monitor.
[2019-02-19] MEDS: cloNIDine 0.2mg Tab ORAL PRN (20:31)
--- NOTE | 2019-02-19 21:30 | NUR ---
NURSE NOTES: B/P recheck 164/65, HR 55, no distress noted. Will continue to monitor.
[2019-02-20] VITALS (10 sets, daily range): BP systolic 140–200; BP diastolic 56–96
[2019-02-20] MEDS: cloNIDine 0.2mg Tab ORAL PRN (05:05)
--- NOTE | 2019-02-20 07:25 | NUR ---
HAND-OFF: Report given to THERESE Giles. Pt in stable condition.
--- NOTE | 2019-02-20 07:33 | NUR ---
NURSE NOTES: Received report from THERESE Cerna. Rounding done with outgoing nurse. Pt a/o x 1, in bed. No respiratory distress noted. 1/2NS with KCl 20 is running @50ml/hr thru Rt FA. Bed in lowest position, call light within reach. Will continue to monitor.
[2019-02-20 08:00] LABS: EOSINOPHILS % (AUTO) 2.7 % (0.0-3.0); HEMATOCRIT 30.8 % (37.0-47.0); HEMOGLOBIN 9.8 G/DL (12.0-16.0); LYMPHOCYTES % (AUTO) 33.4 % (20.0-45.0); MEAN CORPUSCULAR VOLUME 93 FL (80-99); MONOCYTES % (AUTO) 10.9 % (1.0-10.0); PLATELET COUNT 229 K/UL (150-450); RED BLOOD COUNT 3.32 M/UL (4.20-5.40); RED CELL DISTRIBUTION WIDTH 12.5 % (11.6-14.8); WHITE BLOOD COUNT 6.3 K/UL (4.8-10.8)
[2019-02-20 08:08] LABS: ANION GAP 9 mmol/L (5-15); BLOOD UREA NITROGEN 26 mg/dL (7-18); CALCIUM 9.3 MG/DL (8.5-10.1); CARBON DIOXIDE 24 MMOL/L (21-32); CHLORIDE 115 MMOL/L (98-107); CREATININE 1.1 MG/DL (0.55-1.30); POTASSIUM 3.9 MMOL/L (3.5-5.1); SODIUM 147 MMOL/L (136-145)
--- NOTE | 2019-02-20 08:14 | NUR ---
NURSE NOTES: BP 200/70, HR [address] Gardiner was notified and ordered Hydralazine 100mg TID. Noted and carried out.
[2019-02-20] MEDS: HydrALAZINE 50mg tab ORAL SCH ×3 (08:35→17:18)
[2019-02-20] MEDS: Donepezil 10mg tab ORAL SCH (08:35)
[2019-02-20] MEDS: cefTRIAXone 1 GM in D5W 55 ML IVPB SCH (08:35)
[2019-02-20] MEDS: Aspirin Baby 81mg ORAL SCH (08:35)
[2019-02-20] MEDS: Heparin 5000 units/ml inj SUBQ SCH ×2 (08:36→20:24)
[2019-02-20] MEDS: Atenolol 25mg tab ORAL SCH (09:56)
[2019-02-20] MEDS: 1/2NS w/KCl 20mEq 1000ml 1,000 ML IV SCH (11:47)
[2019-02-20] MEDS ORDERED: Fleet's Enema 133ml RECTAL SCH (16:13)
[2019-02-20] MEDS ORDERED: Sennosides 8.6mg tab ORAL PRN (16:15)
[2019-02-20] MEDS ORDERED: Lactulose 20gm/30ml UDC ORAL SCH (16:15)
[2019-02-20] MEDS: Sennosides 8.6mg tab ORAL SCH (16:39)
--- NOTE | 2019-02-20 17:20 | Internal Med Progress Note ---
Subjective Date of Service: Feb 20, 2019 Physician Name Kev Alegre Attending Physician Jose Guadalupe Marlow MD Current Medications Medications (Trade) Dose Ordered Sig/Gustavo Route PRN Reason Start Time Stop Time Status Last Admin Dose Admin Acetaminophen (Tylenol) 650 mg Q4H PRN ORAL fever 02/18/19 07:15 03/20/19 07:14 Albuterol/ Ipratropium (Albuterol/ Ipratropium) 3 ml Q4H PRN HHN Shortness of Breath 02/18/19 07:15 02/23/19 07:14 Aspirin (ASA) 81 mg DAILY ORAL 02/19/19 09:00 03/21/19 08:59 02/20/19 08:35 Atenolol (Tenormin) 25 mg DAILY ORAL 02/18/19 09:00 03/20/19 08:59 02/20/19 09:56 Ceftriaxone Sodium 1 gm/ Dextrose 55 ml @ 110 mls/hr Q24H IVPB 02/18/19 09:00 02/25/19 08:59 02/20/19 08:35 Clonidine HCl (Catapres tab) 0.2 mg Q6H PRN ORAL SBP MORE THAN 160 02/19/19 14:15 03/21/19 14:14 02/20/19 05:05 Donepezil HCl (Aricept) 10 mg DAILY ORAL 02/18/19 09:00 03/20/19 08:59 02/20/19 08:35 Heparin Sodium (Porcine) (Heparin 5000 units/ml) 5,000 units EVERY 12 HOURS SUBQ 02/18/19 09:00 03/20/19 08:59 02/20/19 08:36 Hydralazine HCl (Apresoline) 100 mg TID ORAL 02/20/19 08:20 03/22/19 08:19 02/20/19 17:18 Lactulose (Cephulac) 30 gm DAILY ORAL 02/20/19 16:15 03/22/19 16:14 02/20/19 16:39 Ondansetron HCl (Zofran) 4 mg Q6H PRN IVP Nausea & Vomiting 02/18/19 07:15 03/20/19 07:14 Phenazopyridine HCl (Pyridium) 100 mg DAILY PRN ORAL dysuria 02/18/19 07:15 03/20/19 07:14 Polyethylene Glycol (Miralax) 17 gm DAILYPRN PRN ORAL Constipation 02/18/19 07:15 03/20/19 07:14 Sennosides (Senokot) 8.6 mg DAILY ORAL 02/20/19 16:30 03/22/19 16:29 02/20/19 16:39 Sodium 1,000 ml @ 50 mls/hr Q20H IV 02/19/19 15:00 03/21/19 14:59 02/20/19 11:47 Sodium Phosphate (Fleet's Sodium Phosl Enema) 133 ml DAILY RECTAL 02/20/19 16:13 03/22/19 16:12 Temazepam (Restoril) 15 mg HSPRN PRN ORAL Insomnia 02/18/19 07:15 02/25/19 07:14 Allergies: Coded Allergies: LEVONORGESTREL-ETH ESTRA (Verified Allergy, Unknown, 02/09/11) ROS Limited/Unobtainable: Yes Subjective 83 YO F admitted with altered mental status. Now UTI. Cover for Int Med-DR Marlow Objective Last Vital Signs Date Time Temp Pulse Resp B/P (MAP) Pulse Ox O2 Delivery O2 Flow Rate FiO2 02/20/19 17:18 178/60 02/20/19 16:00 97.3 50 16 100 02/20/19 09:00 Room Air 02/20/19 07:40 21 Laboratory Tests Test 02/20/19 07:49 White Blood Count 6.3 K/UL (4.8-10.8) Red Blood Count 3.32 M/UL (4.20-5.40) L Hemoglobin 9.8 G/DL (12.0-16.0) L Hematocrit 30.8 % (37.0-47.0) L Mean Corpuscular Volume 93 FL (80-99) Mean Corpuscular Hemoglobin 29.5 PG (27.0-31.0) Mean Corpuscular Hemoglobin Concent 31.8 G/DL (32.0-36.0) L Red Cell Distribution Width 12.5 % (11.6-14.8) Platelet Count 229 K/UL (150-450) Mean Platelet Volume 5.2 FL (6.5-10.1) L Neutrophils (%) (Auto) 52.0 % (45.0-75.0) Lymphocytes (%) (Auto) 33.4 % (20.0-45.0) Monocytes (%) (Auto) 10.9 % (1.0-10.0) H Eosinophils (%) (Auto) 2.7 % (0.0-3.0) Basophils (%) (Auto) 1.0 % (0.0-2.0) Sodium Level 147 MMOL/L (136-145) H Potassium Level 3.9 MMOL/L (3.5-5.1) Chloride Level 115 MMOL/L (98-107) H Carbon Dioxide Level 24 MMOL/L (21-32) Anion Gap 9 mmol/L (5-15) Blood Urea Nitrogen 26 mg/dL (7-18) H Creatinine 1.1 MG/DL (0.55-1.30) Estimat Glomerular Filtration Rate mL/min (>60) Glucose Level 116 MG/DL (74-106) H Calcium Level 9.3 MG/DL (8.5-10.1) Microbiology Date/Time Source Procedure Growth Status 02/18/19 07:48 Blood Blood Culture - Preliminary NO GROWTH AFTER 24 HOURS Resulted 02/18/19 07:38 Blood Blood Culture - Preliminary NO GROWTH AFTER 24 HOURS Resulted 02/18/19 10:30 Urine,Clean Catch Urine Culture - Preliminary Mixed Gram Positive Organism Resulted Intake and Output 02/19/19 02/20/19 18:59 06:59 Intake Total 300 ml 630 ml Output Total 250 ml 300 ml Balance 50 ml 330 ml Intake Oral 300 ml 30 ml IV Total 600 ml Output Urine Total 250 ml 300 ml Objective PHYSICAL EXAMINATION: GENERAL: The patient is sleepy, not responsive, and cannot follow commands. HEAD AND NECK: Pupils are reactive to light. Anicteric. Neck was supple. No JVD. LUNGS: Good air entry. No wheezing or rales. Decreased air in the bases. HEART: S1, S2. Regular rhythm. Systolic ejection murmur in the left sternal border was noted. ABDOMEN: Soft, nondistended, and nontender. Positive bowel sounds. EXTREMITIES: No cyanosis, clubbing, or edema. NEUROLOGIC: Limited secondary to the patient's status. The patient is unable to follow commands. However, she does withdraw from pain and sensory, unable to obtain or motor. The patient is spontaneously moving extremities still. Assessment/Plan Assessment/Plan ASSESSMENT: 1. Altered mental status, most likely secondary to toxic metabolic encephalopathy most likely secondary to infection such as urinary tract infection, however, cannot rule out recurrent seizure. 2. Hypertension. 3. Acute UTI=mixed culture 4. Dyslipidemia. 5. Alzheimer dementia. 6. Acute left occipital cerebral vascular accident 7. Hypernatremia PLAN: 1. Admit the patient to medical floor. 2. See Dr. Gardiner's recommendation from Pulmonary Critical Care 3. Continue ceftriaxone per Dr. Brown from Infectious Disease. 4. Follow up urine culture result from [place]-Urine culture here=no growth 5. Code status at this time is Full Code 6. MRI of the brain=Acute CVA. await neurology consult. 7. 1/2 NS + 20 meq KCL/L @ 50 cc/hr Kev Alegre MD Feb 20, 2019 17:20
--- NOTE | 2019-02-20 18:18 | Pulmonology Progress Note ---
Assessment/Plan Problems: (1) UTI (urinary tract infection) (2) Tonic clonic seizures (3) Acute metabolic encephalopathy (4) COPD (5) HTN (hypertension) Assessment/Plan doing better no new complains check cultures respiratory treatment monitor BP dvt prophylaxis Subjective ROS Limited/Unobtainable: No Constitutional: Reports: no symptoms HEENT: Repors: no symptoms Allergies: Coded Allergies: LEVONORGESTREL-ETH ESTRA (Verified Allergy, Unknown, 02/09/11) Objective Last 24 Hour Vital Signs Date Time Temp Pulse Resp B/P (MAP) Pulse Ox O2 Delivery O2 Flow Rate FiO2 02/20/19 17:18 178/60 02/20/19 16:00 97.3 50 16 178/60 (99) 100 02/20/19 13:07 145/56 02/20/19 12:00 97.5 51 16 145/56 (85) 100 02/20/19 10:20 56 152/58 (89) 02/20/19 09:56 57 182/67 02/20/19 09:30 57 182/67 (105) 02/20/19 09:00 Room Air 02/20/19 08:35 200/70 02/20/19 08:00 97.2 49 16 200/70 (113) 97 02/20/19 07:40 51 18 96 Room Air 21 02/20/19 06:30 59 187/96 (126) 02/20/19 05:05 189/84 02/20/19 05:00 97.7 54 16 189/64 (105) 98 02/20/19 00:00 97.4 53 17 187/63 (104) 97 02/19/19 21:30 55 16 164/55 (91) 02/19/19 21:00 Room Air 02/19/19 20:31 163/55 02/19/19 20:01 66 18 97 Room Air 21 02/19/19 20:00 97.5 52 16 163/55 (91) 97 Intake and Output 02/19/19 02/20/19 18:59 06:59 Intake Total 300 ml 630 ml Output Total 250 ml 300 ml Balance 50 ml 330 ml Intake Oral 300 ml 30 ml IV Total 600 ml Output Urine Total 250 ml 300 ml General Appearance: cachetic HEENT: normocephalic, atraumatic Respiratory/Chest: chest wall non-tender, lungs clear Cardiovascular: normal peripheral pulses, normal rate Abdomen: normal bowel sounds, soft, non tender Genitourinary: normal external genitalia Neurologic/Psychiatric: spd tech II-XII grossly normal Microbiology Date/Time Source Procedure Growth Status 02/18/19 07:48 Blood Blood Culture - Preliminary NO GROWTH AFTER 24 HOURS Resulted 02/18/19 07:38 Blood Blood Culture - Preliminary NO GROWTH AFTER 24 HOURS Resulted 02/18/19 10:30 Urine,Clean Catch Urine Culture - Preliminary Mixed Gram Positive Organism Resulted Laboratory Tests 02/20/19 07:49: White Blood Count 6.3, Red Blood Count 3.32L, Hemoglobin 9.8L, Hematocrit 30.8L , Mean Corpuscular Volume 93, Mean Corpuscular Hemoglobin 29.5, Mean Corpuscular Hemoglobin Concent 31.8L, Red Cell Distribution Width 12.5, Platelet Count 229, Mean Platelet Volume 5.2L, Neutrophils (%) (Auto) 52.0, Lymphocytes (%) (Auto) 33.4, Monocytes (%) (Auto) 10.9H, Eosinophils (%) (Auto) 2.7, Basophils (%) (Auto) 1.0, Sodium Level 147H, Potassium Level 3.9, Chloride Level 115H, Carbon Dioxide Level 24, Anion Gap 9, Blood Urea Nitrogen 26H, Creatinine 1.1, Estimat Glomerular Filtration Rate , Glucose Level 116H, Calcium Level 9.3 Current Medications Medications (Trade) Dose Ordered Sig/Gustavo Route PRN Reason Start Time Stop Time Status Last Admin Dose Admin Acetaminophen (Tylenol) 650 mg Q4H PRN ORAL fever 02/18/19 07:15 03/20/19 07:14 Albuterol/ Ipratropium (Albuterol/ Ipratropium) 3 ml Q4H PRN HHN Shortness of Breath 02/18/19 07:15 02/23/19 07:14 Aspirin (ASA) 81 mg DAILY ORAL 02/19/19 09:00 03/21/19 08:59 02/20/19 08:35 Atenolol (Tenormin) 25 mg DAILY ORAL 02/18/19 09:00 03/20/19 08:59 02/20/19 09:56 Ceftriaxone Sodium 1 gm/ Dextrose 55 ml @ 110 mls/hr Q24H IVPB 02/18/19 09:00 02/25/19 08:59 02/20/19 08:35 Clonidine HCl (Catapres tab) 0.2 mg Q6H PRN ORAL SBP MORE THAN 160 02/19/19 14:15 03/21/19 14:14 02/20/19 05:05 Donepezil HCl (Aricept) 10 mg DAILY ORAL 02/18/19 09:00 03/20/19 08:59 02/20/19 08:35 Heparin Sodium (Porcine) (Heparin 5000 units/ml) 5,000 units EVERY 12 HOURS SUBQ 02/18/19 09:00 03/20/19 08:59 02/20/19 08:36 Hydralazine HCl (Apresoline) 100 mg TID ORAL 02/20/19 08:20 03/22/19 08:19 02/20/19 17:18 Lactulose (Cephulac) 30 gm DAILY ORAL 02/20/19 16:15 03/22/19 16:14 02/20/19 16:39 Ondansetron HCl (Zofran) 4 mg Q6H PRN IVP Nausea & Vomiting 02/18/19 07:15 03/20/19 07:14 Phenazopyridine HCl (Pyridium) 100 mg DAILY PRN ORAL dysuria 02/18/19 07:15 03/20/19 07:14 Polyethylene Glycol (Miralax) 17 gm DAILYPRN PRN ORAL Constipation 02/18/19 07:15 03/20/19 07:14 Sennosides (Senokot) 8.6 mg DAILY ORAL 02/20/19 16:30 03/22/19 16:29 02/20/19 16:39 Sodium 1,000 ml @ 50 mls/hr Q20H IV 02/19/19 15:00 03/21/19 14:59 02/20/19 11:47 Sodium Phosphate (Fleet's Sodium Phosl Enema) 133 ml DAILY RECTAL 02/20/19 16:13 03/22/19 16:12 Temazepam (Restoril) 15 mg HSPRN PRN ORAL Insomnia 02/18/19 07:15 02/25/19 07:14 Chanel Gardiner MD Feb 20, 2019 18:18
--- NOTE | 2019-02-20 19:30 | NUR ---
HAND-OFF: Report given to THERESE Muñoz.
--- NOTE | 2019-02-20 23:36 | NUR ---
Patient aware to name. A/O X1. No outward s/s of respiratory difficulties or distress. Enema effective- Large, loose, bowel movement noted . Peripheral IV located on posterior left hand found to be intact and patent. All due meds given. Seizure precautions in place. Bed at lowest level. Call light within reach. Patient will continue to be monitored.
[2019-02-21] VITALS (7 sets, daily range): BP systolic 132–188; BP diastolic 56–74
[2019-02-21] MEDS: cloNIDine 0.2mg Tab ORAL PRN ×2 (04:52→21:18)
[2019-02-21] MEDS: 1/2NS w/KCl 20mEq 1000ml 1,000 ML IV SCH (06:55)
--- NOTE | 2019-02-21 07:30 | NUR ---
NURSE NOTES: Patient is in bed awake. Stable. No facial grimacing or signs of distress noted. Breathing is even and unlabored. is at bedside feeding patient with HOB up, tolerated well. Siderails are padded. All safety measures provided. Patient is in bed in locked and lowest position. All needs met at this time. Will continue to monitor.
--- NOTE | 2019-02-21 07:36 | NUR ---
HAND-OFF: Report given to THERESE Barajas.
[2019-02-21 08:04] LABS: HEMATOCRIT 28.7 % (37.0-47.0); HEMOGLOBIN 9.2 G/DL (12.0-16.0); LYMPHOCYTES % (AUTO) 32.3 % (20.0-45.0); MEAN CORPUSCULAR VOLUME 92 FL (80-99); MONOCYTES % (AUTO) 7.5 % (1.0-10.0); NEUTROPHILS % (AUTO) 57.2 % (45.0-75.0); PLATELET COUNT 220 K/UL (150-450); RED BLOOD COUNT 3.11 M/UL (4.20-5.40); RED CELL DISTRIBUTION WIDTH 12.4 % (11.6-14.8); WHITE BLOOD COUNT 6.8 K/UL (4.8-10.8)
[2019-02-21] MEDS: Sennosides 8.6mg tab ORAL SCH (08:32)
[2019-02-21] MEDS: Aspirin Baby 81mg ORAL SCH (08:32)
[2019-02-21] MEDS: Donepezil 10mg tab ORAL SCH (08:32)
[2019-02-21] MEDS: cefTRIAXone 1 GM in D5W 55 ML IVPB SCH (08:32)
[2019-02-21] MEDS: HydrALAZINE 50mg tab ORAL SCH ×3 (08:33→17:42)
[2019-02-21] MEDS: Heparin 5000 units/ml inj SUBQ SCH ×2 (08:34→20:58)
[2019-02-21] MEDS: Atenolol 25mg tab ORAL SCH (08:36)
--- NOTE | 2019-02-21 08:54 | Cardiology Report ---
APPROVED REPORT EXAM: Two-dimensional and M-mode echocardiogram with Doppler and color Doppler. M-Mode DIMENSIONS IVSd1.3 (0.7-1.1cm)Left Atrium (MM)2.8 (1.6-4.0cm) LVDd5.4 (3.5-5.6cm)Aortic Root3.3 (2.0-3.7cm) PWd1.1 (0.7-1.1cm)Aortic Cusp Exc.1.8 (1.5-2.0cm) IVSs1.3 cm LVDs3.5 (2.5-4.0cm) PWs1.2 cm Normal left ventricular chamber size, systolic function and wall motion . Left ventricular ejection fraction estimated to be 60%. Mild left ventricular hypertrophy. Trivial posterior pericardial effusion. All other cardiac chamber sizes are within normal limits. Moderate aortic valve calcification with normal cusp excursion . Mildly thickened mitral valve leaflets with normal excursion. Mild mitral annulus and aortic root calcification. Pulmonic valve not well visualized. IVC dilated at 2.4 cm without physiologic collapse suggestive of increased RA pressure. A color flow and spectral Doppler study was performed and revealed: Moderate aortic insufficiency . Peak aortic valve gradient of 16 mm Hg and a mean of 7 mmHg. Aortic valve area 1.7 cm2 calculated by continuity equation. Mitral diastolic velocities suggest reduced left ventricular relaxation c/w mild LV diastolic dysfunction (Grade I ) Trace mitral regurgitation. Mild tricuspid regurgitation. Tricuspid systolic velocities suggests peak right ventricular systolic pressure of 36mmHg,consistent with mild pulmonary hypertension. Pulmonic regurgitation present.
[2019-02-21 08:59] LABS: ANION GAP 10 mmol/L (5-15); BLOOD UREA NITROGEN 25 mg/dL (7-18); CALCIUM 9.2 MG/DL (8.5-10.1); CARBON DIOXIDE 22 MMOL/L (21-32); CHLORIDE 115 MMOL/L (98-107); POTASSIUM 3.9 MMOL/L (3.5-5.1); SODIUM 147 MMOL/L (136-145)
--- NOTE | 2019-02-21 10:53 | NUR ---
NOTES: REFERRED FOR A SWALLOWING EVALUATION BY DR ORTIZ (PRIMARY IS DR GRACE), SEE REPORT IN CARE ACTIVITY SECTION. DYSPHAGIA RISK FACTORS FOR THIS ADVANCED AGED AA 83 Y.O.F.: ACUTE ISSUES: UTI POSSIBLE TOXIC-MET ENCEPHALOPATHY CAUSING AMS (PER DTR AT BASELINE COGNITIVELY). PER CT HEAD SCAN AT [facility] HAS UNDERLYING SUBACUTE SUBCORICAL INFARCT ON TOP OF CHRONIC CHANGES, MODERATE VENTRICULOMEGALY. ON MRI BRAIN SCAN HERE NEW ACUTE LEFT OCCIPITAL CVA. SEE NOTE BY NEUROLOGY [place] CALI (FAMILY WANTS TO TALK TO PHYSICIANS REGARDING RESULTS). CXR NEGATIVE H/O SEIZURE (JUN ? DECEMBER) PATIENT IS FROM HOME AND MAY GO TO SNF PER DR ORTIZ (PER DTR) SWALLOW/DIET HX PER FAMILY, THE PATIENT LIVES AT HOME AND HAS HAD A PRIOR H/O CHEWING ON A PIECE OF FOOD UNTIL LATE AT NIGHT (POCKETING CHEWABLE FOOD). CURRENTLY ON A SOPHIE REGULAR TEXTURE DIET AND THIN LIQUIDS WITH POOR AND SLOWER INTAKE (10/25/50%). PER RN, NO OVERT S/S OF ASP ON PILL THAT IS WHOLE WITH WATER. PATIENT IS ALERT ON ROOM AIR. NONVERBAL AND LAUGHS IN RESPONSE TO QUESTIONS. MISSING ALL UPPER TEETH AND HAS MIN LOWER TEETH. PER DTR HER DENTURES ARE LOST. HER TONGUE NEEDS ORAL CARE (WHITISH ON ALL SURFACES). PIECE OF CHEWABLE FOOD REMOVED FROM THE RIGHT SIDE OF HER MOUTH. INITIAL IMPRESSIONS S/S OF AT LEAST A MILD-MODERATE ORAL PREP AND OROPHARYNEGAL DYSPHAGIA WITH OVERALL INCREASED TRANSIT TIMES ESPECIALLY WITH MASTICED SOLIDS. GIVEN THIN LIQUIDS VIA STRAW, DID NOT SWALLOW SEQUENTIALLY (POOR FOLLOWING ORAL AND MOST COMMANDS). 2 SECONDS PRIOR TO SWALLOW WITH ONE SIP VIA STRAW W/O OVERT ASPIRATION. GIVEN PUREED TSP, TENDS TO CHEW FOR 4-6 SECONDS WITH EXTRA SWALLOW FOR MILD ORAL (? PHARYNGEAL ALSO) RESIDUE, NO OVERT ASPIRATION. WILL HOLD ON MASTICATED SOLIDS FOR NOW. HAS SILENT ASP RISK BUT LUNGS ARE CLEAR NOW. ' SLOW/POOR INTAKE ON REG TEXTURE DIET RECOMMENDATIONS: COMPLETE MOD BARIUM SWALLOW STUDY TO FURTHER ASSESS SWALLOW, DETERMINE SILENT ASP RISK, AND ATTEMPT TRIAL TX DOWNGRADE TO SOPHIE PUREED AND THIN LIQUIDS (ONE SIP) AND POSTED ASPIRATION PRECAUTIONS AND ONE TO ONE FEEDING. PER RN SEND ENSURE TID (NOT GETTING NOW) AND PUT ON CALORIE COUNT. SKILLED DYSPHAGIA MANAGEMENT AND TX AND COG-COM EVAL/TX FOR COMMUNICATION TIPS. D/W DR ORTIZ (AND TOLD HIM DTR WANTS TO SPEAK WITH HIM OR NEUROLOGIST REGARDING BRAIN SCANS) D/W THERESE RAO AND BRITTNI MANZANO AND EDUCATED/TRAINED THEM AND FAMILY IN POSTED PRECAUTIONS.
--- NOTE | 2019-02-21 12:00 | NUR ---
NURSE NOTES: Patient's daughter told PT not to wake up patient for therapy because she is asleep. PT spoke with RN and RN will notify PT when patient is awake.
--- NOTE | 2019-02-21 12:02 | Infectious Diseases Prog Note ---
Assessment/Plan Assessment/Plan Abx: Ceftriaxone 02/18- Assessment: ?Seizure episode Probable UTI -u/a wbc 30-40, nit neg, leuk +3; ucx 30-40k mixed gram positive growth Afebrile No leukocytosis Acute on chronic encephalopathy HTN Dementia Plan: -D/c empiric Ceftriaxone #4/3 and monitor off abx -f/u cx -Monitor CBC/CMP, temperatures -aspiration precautions Thank you for this consultation. Will continue to follow along with you. Subjective Allergies: Coded Allergies: LEVONORGESTREL-ETH ESTRA (Verified Allergy, Unknown, 02/09/11) Subjective afebrile no leukocytosis Bcx NTD Objective Vital Signs Last 24 Hour Vital Signs Date Time Temp Pulse Resp B/P (MAP) Pulse Ox O2 Delivery O2 Flow Rate FiO2 02/21/19 09:00 Room Air 02/21/19 08:36 51 159/56 02/21/19 08:33 159/56 02/21/19 08:00 98.2 51 20 159/56 (90) 97 02/21/19 04:52 188/60 02/21/19 04:00 98.2 53 16 188/60 (102) 96 02/21/19 00:00 98.4 56 16 158/74 (102) 97 02/20/19 21:00 Room Air 02/20/19 20:00 99.4 56 17 140/56 (84) 96 02/20/19 19:28 53 18 96 Room Air 21 02/20/19 18:30 52 157/57 (90) 02/20/19 17:18 178/60 02/20/19 16:00 97.3 50 16 178/60 (99) 100 02/20/19 13:07 145/56 Height (Feet): 5 Height (Inches): 6.00 Weight (Pounds): 175 Objective General Appearance: NAD HEENT: normocephalic, atraumatic, MMM, EOMI Respiratory/Chest: CTAB , No W Cardiovascular/Chest: RRR, S,1 S2 Abdomen: normal bowel sounds, Soft , Not tender Laboratory Tests Test 02/21/19 05:16 White Blood Count 6.8 K/UL (4.8-10.8) Red Blood Count 3.11 M/UL (4.20-5.40) L Hemoglobin 9.2 G/DL (12.0-16.0) L Hematocrit 28.7 % (37.0-47.0) L Mean Corpuscular Volume 92 FL (80-99) Mean Corpuscular Hemoglobin 29.7 PG (27.0-31.0) Mean Corpuscular Hemoglobin Concent 32.2 G/DL (32.0-36.0) Red Cell Distribution Width 12.4 % (11.6-14.8) Platelet Count 220 K/UL (150-450) Mean Platelet Volume 4.8 FL (6.5-10.1) L Neutrophils (%) (Auto) 57.2 % (45.0-75.0) Lymphocytes (%) (Auto) 32.3 % (20.0-45.0) Monocytes (%) (Auto) 7.5 % (1.0-10.0) Eosinophils (%) (Auto) 2.0 % (0.0-3.0) Basophils (%) (Auto) 1.0 % (0.0-2.0) Sodium Level 147 MMOL/L (136-145) H Potassium Level 3.9 MMOL/L (3.5-5.1) Chloride Level 115 MMOL/L (98-107) H Carbon Dioxide Level 22 MMOL/L (21-32) Anion Gap 10 mmol/L (5-15) Blood Urea Nitrogen 25 mg/dL (7-18) H Creatinine 1.0 MG/DL (0.55-1.30) Estimat Glomerular Filtration Rate mL/min (>60) Glucose Level 96 MG/DL (74-106) Calcium Level 9.2 MG/DL (8.5-10.1) Current Medications Medications (Trade) Dose Ordered Sig/Gustavo Route PRN Reason Start Time Stop Time Status Last Admin Dose Admin Acetaminophen (Tylenol) 650 mg Q4H PRN ORAL fever 02/18/19 07:15 03/20/19 07:14 Albuterol/ Ipratropium (Albuterol/ Ipratropium) 3 ml Q4H PRN HHN Shortness of Breath 02/18/19 07:15 02/23/19 07:14 Aspirin (ASA) 81 mg DAILY ORAL 02/19/19 09:00 03/21/19 08:59 02/21/19 08:32 Atenolol (Tenormin) 25 mg DAILY ORAL 02/18/19 09:00 03/20/19 08:59 02/20/19 09:56 Ceftriaxone Sodium 1 gm/ Dextrose 55 ml @ 110 mls/hr Q24H IVPB 02/18/19 09:00 02/25/19 08:59 02/21/19 08:32 Clonidine HCl (Catapres tab) 0.2 mg Q6H PRN ORAL SBP MORE THAN 160 02/19/19 14:15 03/21/19 14:14 02/21/19 04:52 Donepezil HCl (Aricept) 10 mg DAILY ORAL 02/18/19 09:00 03/20/19 08:59 02/21/19 08:32 Heparin Sodium (Porcine) (Heparin 5000 units/ml) 5,000 units EVERY 12 HOURS SUBQ 02/18/19 09:00 03/20/19 08:59 02/21/19 08:34 Hydralazine HCl (Apresoline) 100 mg TID ORAL 02/20/19 08:20 03/22/19 08:19 02/21/19 08:33 Ondansetron HCl (Zofran) 4 mg Q6H PRN IVP Nausea & Vomiting 02/18/19 07:15 03/20/19 07:14 Phenazopyridine HCl (Pyridium) 100 mg DAILY PRN ORAL dysuria 02/18/19 07:15 03/20/19 07:14 Polyethylene Glycol (Miralax) 17 gm DAILYPRN PRN ORAL Constipation 02/18/19 07:15 03/20/19 07:14 Sennosides (Senokot) 8.6 mg DAILY ORAL 02/20/19 16:30 03/22/19 16:29 02/21/19 08:32 Sodium 1,000 ml @ 50 mls/hr Q20H IV 02/19/19 15:00 03/21/19 14:59 02/21/19 06:55 Temazepam (Restoril) 15 mg HSPRN PRN ORAL Insomnia 02/18/19 07:15 02/25/19 07:14 Erica Brown M.D. Feb 21, 2019 12:02
--- NOTE | 2019-02-21 13:30 | NUR ---
NURSE NOTES: PT Jeannette tried to work with patient. Patient was able to stand at bedside with assistance. Patient's told PT that patient does not walk frequently at home and it is not unusual that patient does not walk. PT assisted patient back to bed. All safety measures provided. Patient in bed in locked and lowest position with call light within reach. Will continue to monitor.
--- NOTE | 2019-02-21 14:10 | Pulmonology Progress Note ---
Assessment/Plan Problems: (1) UTI (urinary tract infection) (2) Tonic clonic seizures (3) Acute metabolic encephalopathy (4) COPD (5) HTN (hypertension) Assessment/Plan doing better no new complains check cultures respiratory treatment monitor BP dvt prophylaxis MRI reviewed dc planning Subjective ROS Limited/Unobtainable: No Constitutional: Reports: no symptoms HEENT: Repors: no symptoms Respiratory: Reports: no symptoms Allergies: Coded Allergies: LEVONORGESTREL-ETH ESTRA (Verified Allergy, Unknown, 02/09/11) Objective Last 24 Hour Vital Signs Date Time Temp Pulse Resp B/P (MAP) Pulse Ox O2 Delivery O2 Flow Rate FiO2 02/21/19 13:05 140/55 02/21/19 09:00 Room Air 02/21/19 08:36 51 159/56 02/21/19 08:33 159/56 02/21/19 08:00 98.2 51 20 159/56 (90) 97 02/21/19 04:52 188/60 02/21/19 04:00 98.2 53 16 188/60 (102) 96 02/21/19 00:00 98.4 56 16 158/74 (102) 97 02/20/19 21:00 Room Air 02/20/19 20:00 99.4 56 17 140/56 (84) 96 02/20/19 19:28 53 18 96 Room Air 21 02/20/19 18:30 52 157/57 (90) 02/20/19 17:18 178/60 02/20/19 16:00 97.3 50 16 178/60 (99) 100 Intake and Output 02/20/19 02/21/19 19:00 07:00 Intake Total 855 ml 670 ml Output Total 250 ml 300 ml Balance 605 ml 370 ml Intake Oral 200 ml 120 ml IV Total 655 ml 550 ml Output Urine Total 250 ml 300 ml General Appearance: WD/WN HEENT: normocephalic, atraumatic Respiratory/Chest: chest wall non-tender, lungs clear Breasts: no masses Cardiovascular: normal peripheral pulses Abdomen: soft, non tender, no scars Extremities: no clubbing Skin: no rash Laboratory Tests 02/21/19 05:16: White Blood Count 6.8, Red Blood Count 3.11L, Hemoglobin 9.2L, Hematocrit 28.7L , Mean Corpuscular Volume 92, Mean Corpuscular Hemoglobin 29.7, Mean Corpuscular Hemoglobin Concent 32.2, Red Cell Distribution Width 12.4, Platelet Count 220, Mean Platelet Volume 4.8L, Neutrophils (%) (Auto) 57.2, Lymphocytes ( %) (Auto) 32.3, Monocytes (%) (Auto) 7.5, Eosinophils (%) (Auto) 2.0, Basophils (%) (Auto) 1.0, Sodium Level 147H, Potassium Level 3.9, Chloride Level 115H, Carbon Dioxide Level 22, Anion Gap 10, Blood Urea Nitrogen 25H, Creatinine 1.0, Estimat Glomerular Filtration Rate , Glucose Level 96, Calcium Level 9.2 Current Medications Medications (Trade) Dose Ordered Sig/Gustavo Route PRN Reason Start Time Stop Time Status Last Admin Dose Admin Acetaminophen (Tylenol) 650 mg Q4H PRN ORAL fever 02/18/19 07:15 03/20/19 07:14 Albuterol/ Ipratropium (Albuterol/ Ipratropium) 3 ml Q4H PRN HHN Shortness of Breath 02/18/19 07:15 02/23/19 07:14 Aspirin (ASA) 81 mg DAILY ORAL 02/19/19 09:00 03/21/19 08:59 02/21/19 08:32 Atenolol (Tenormin) 25 mg DAILY ORAL 02/18/19 09:00 03/20/19 08:59 02/20/19 09:56 Clonidine HCl (Catapres tab) 0.2 mg Q6H PRN ORAL SBP MORE THAN 160 02/19/19 14:15 03/21/19 14:14 02/21/19 04:52 Donepezil HCl (Aricept) 10 mg DAILY ORAL 02/18/19 09:00 03/20/19 08:59 02/21/19 08:32 Heparin Sodium (Porcine) (Heparin 5000 units/ml) 5,000 units EVERY 12 HOURS SUBQ 02/18/19 09:00 03/20/19 08:59 02/21/19 08:34 Hydralazine HCl (Apresoline) 100 mg TID ORAL 02/20/19 08:20 03/22/19 08:19 02/21/19 13:05 Ondansetron HCl (Zofran) 4 mg Q6H PRN IVP Nausea & Vomiting 02/18/19 07:15 03/20/19 07:14 Phenazopyridine HCl (Pyridium) 100 mg DAILY PRN ORAL dysuria 02/18/19 07:15 03/20/19 07:14 Polyethylene Glycol (Miralax) 17 gm DAILYPRN PRN ORAL Constipation 02/18/19 07:15 03/20/19 07:14 Sennosides (Senokot) 8.6 mg DAILY ORAL 02/20/19 16:30 03/22/19 16:29 02/21/19 08:32 Sodium 1,000 ml @ 50 mls/hr Q20H IV 02/19/19 15:00 03/21/19 14:59 02/21/19 06:55 Temazepam (Restoril) 15 mg HSPRN PRN ORAL Insomnia 02/18/19 07:15 02/25/19 07:14 Chanel Gardiner MD Feb 21, 2019 14:10
--- NOTE | 2019-02-21 14:49 | NUR ---
*-* DISCHARGE PLANNING *-* PATIENT HAS BEEN REFERRED TO: [facility] P: [phone] F: [phone]
--- NOTE | 2019-02-21 18:01 | Consultation ---
Consult Note Consult Note NEUROLOGY CONSULTATION: Full note dictated #[id number] 83-year-old, right-handed, black lady, with long history of hypertension, dyslipidemia, Alzheimer's disease, cerebrovascular disease with prior strokes, loss of ability to walk since May 2018, and a generalized decline in both cognitive and motor function. She also had a single seizure approximately 1 year ago consisting of a generalized tonic-clonic seizure. She was functioning relatively well until 02/17/2019 when she was taken to [facility] after having a generalized tonic-clonic seizure at home. She was evaluated there and then transferred to [facility] on 02/18/2019. During her work-up at [facility] an MRI scan of the brain was performed and revealed an acute infarct of the small size in the left parietal area. ON EXAMINATION: Awake and alert Oriented to self only Significant mixed aphasia making further mental status testing and possible. Speech dysarthric Language aphasic Cranial nerves II through XII intact Motor power difficult to test because of inability to cooperate. However exhibiting generalized weakness Sensory intact to deep pain unable to cooperate further modalities Reflexes: 1+ and bilaterally symmetrical at biceps triceps brachioradialis and knees. 0 at both ankles. Plantar responses flexor. Coordination stance and gait could not be tested. IMPRESSION: Second generalized seizure over period of one year Prior history of Alzheimer's disease and cerebrovascular disease with MRI revealing small acute parietal infarct High risk for recurrent seizures. RECOMMENDATIONS: Continue present management. EEG to evaluate ongoing ictal or interictal phenomena Start Keppra 500 mg every 12 hours. Observe. Pipe Perkins M.D., M.S.P.H. Pipe Perkins MD Feb 21, 2019 18:01
--- NOTE | 2019-02-21 18:41 | Internal Med Progress Note ---
Subjective Date of Service: Feb 21, 2019 Physician Name Kev Alegre Attending Physician Jose Guadalupe Marlow MD Current Medications Medications (Trade) Dose Ordered Sig/Gustavo Route PRN Reason Start Time Stop Time Status Last Admin Dose Admin Acetaminophen (Tylenol) 650 mg Q4H PRN ORAL fever 02/18/19 07:15 03/20/19 07:14 Albuterol/ Ipratropium (Albuterol/ Ipratropium) 3 ml Q4H PRN HHN Shortness of Breath 02/18/19 07:15 02/23/19 07:14 Aspirin (ASA) 81 mg DAILY ORAL 02/19/19 09:00 03/21/19 08:59 02/21/19 08:32 Atenolol (Tenormin) 25 mg DAILY ORAL 02/18/19 09:00 03/20/19 08:59 02/20/19 09:56 Clonidine HCl (Catapres tab) 0.2 mg Q6H PRN ORAL SBP MORE THAN 160 02/19/19 14:15 03/21/19 14:14 02/21/19 04:52 Donepezil HCl (Aricept) 10 mg DAILY ORAL 02/18/19 09:00 03/20/19 08:59 02/21/19 08:32 Heparin Sodium (Porcine) (Heparin 5000 units/ml) 5,000 units EVERY 12 HOURS SUBQ 02/18/19 09:00 03/20/19 08:59 02/21/19 08:34 Hydralazine HCl (Apresoline) 100 mg TID ORAL 02/20/19 08:20 03/22/19 08:19 02/21/19 17:42 Levetiracetam (Keppra) 500 mg Q12HR ORAL 02/21/19 21:00 03/23/19 20:59 Ondansetron HCl (Zofran) 4 mg Q6H PRN IVP Nausea & Vomiting 02/18/19 07:15 03/20/19 07:14 Phenazopyridine HCl (Pyridium) 100 mg DAILY PRN ORAL dysuria 02/18/19 07:15 03/20/19 07:14 Polyethylene Glycol (Miralax) 17 gm DAILYPRN PRN ORAL Constipation 02/18/19 07:15 03/20/19 07:14 Sennosides (Senokot) 8.6 mg DAILY ORAL 02/20/19 16:30 03/22/19 16:29 02/21/19 08:32 Sodium 1,000 ml @ 50 mls/hr Q20H IV 02/19/19 15:00 03/21/19 14:59 02/21/19 06:55 Temazepam (Restoril) 15 mg HSPRN PRN ORAL Insomnia 02/18/19 07:15 02/25/19 07:14 Allergies: Coded Allergies: LEVONORGESTREL-ETH ESTRA (Verified Allergy, Unknown, 02/09/11) ROS Limited/Unobtainable: Yes Subjective 83 YO F admitted with altered mental status. Now acute cerebral vascular accident. Cover for Int Med-DR Marlow Objective Last Vital Signs Date Time Temp Pulse Resp B/P (MAP) Pulse Ox O2 Delivery O2 Flow Rate FiO2 02/21/19 17:42 151/56 02/21/19 16:00 97.1 65 18 95 02/21/19 09:00 Room Air 02/20/19 19:28 21 Laboratory Tests Test 02/21/19 05:16 White Blood Count 6.8 K/UL (4.8-10.8) Red Blood Count 3.11 M/UL (4.20-5.40) L Hemoglobin 9.2 G/DL (12.0-16.0) L Hematocrit 28.7 % (37.0-47.0) L Mean Corpuscular Volume 92 FL (80-99) Mean Corpuscular Hemoglobin 29.7 PG (27.0-31.0) Mean Corpuscular Hemoglobin Concent 32.2 G/DL (32.0-36.0) Red Cell Distribution Width 12.4 % (11.6-14.8) Platelet Count 220 K/UL (150-450) Mean Platelet Volume 4.8 FL (6.5-10.1) L Neutrophils (%) (Auto) 57.2 % (45.0-75.0) Lymphocytes (%) (Auto) 32.3 % (20.0-45.0) Monocytes (%) (Auto) 7.5 % (1.0-10.0) Eosinophils (%) (Auto) 2.0 % (0.0-3.0) Basophils (%) (Auto) 1.0 % (0.0-2.0) Sodium Level 147 MMOL/L (136-145) H Potassium Level 3.9 MMOL/L (3.5-5.1) Chloride Level 115 MMOL/L (98-107) H Carbon Dioxide Level 22 MMOL/L (21-32) Anion Gap 10 mmol/L (5-15) Blood Urea Nitrogen 25 mg/dL (7-18) H Creatinine 1.0 MG/DL (0.55-1.30) Estimat Glomerular Filtration Rate mL/min (>60) Glucose Level 96 MG/DL (74-106) Calcium Level 9.2 MG/DL (8.5-10.1) Intake and Output 02/20/19 02/21/19 18:59 06:59 Intake Total 855 ml 720 ml Output Total 250 ml 300 ml Balance 605 ml 420 ml Intake Oral 200 ml 120 ml IV Total 655 ml 600 ml Output Urine Total 250 ml 300 ml Objective PHYSICAL EXAMINATION: GENERAL: The patient is sleepy, not responsive, and cannot follow commands. HEAD AND NECK: Pupils are reactive to light. Anicteric. Neck was supple. No JVD. LUNGS: Good air entry. No wheezing or rales. Decreased air in the bases. HEART: S1, S2. Regular rhythm. Systolic ejection murmur in the left sternal border was noted. ABDOMEN: Soft, nondistended, and nontender. Positive bowel sounds. EXTREMITIES: No cyanosis, clubbing, or edema. NEUROLOGIC: Limited secondary to the patient's status. The patient is unable to follow commands. However, she does withdraw from pain and sensory, unable to obtain or motor. The patient is spontaneously moving extremities still. Assessment/Plan Assessment/Plan ASSESSMENT: 1. Altered mental status 2. Hypertension. 3. Acute UTI=mixed culture 4. Dyslipidemia. 5. Alzheimer dementia. 6. Acute left occipital cerebral vascular accident 7. Hypernatremia 8. seizure PLAN: 1. Admit the patient to medical floor. 2. See Dr. Gardiner's recommendation from Pulmonary Critical Care 3. Continue ceftriaxone per Dr. Brown from Infectious Disease. 4. Follow up urine culture result from [place]-Urine culture here=no growth 5. Code status at this time is Full Code 6. MRI of the brain=Acute CVA. see neurology consult=Dr Perkins 7. /2 NS + 20 meq KCL/L @ 50 cc/hr 8. Await EEG; start Kev Hopkins MD Feb 21, 2019 18:41
--- NOTE | 2019-02-21 19:00 | Consultation ---
DATE OF CONSULTATION: 02/21/2019 NEUROLOGY CONSULTATION CONSULTING PHYSICIAN: Pipe Perkins M.D. REQUESTING PHYSICIAN: Jose Guadalupe Marlow M.D. HISTORY OF PRESENT ILLNESS: The patient is an 83-year-old right-handed black lady, who does have a long history of hypertension, dyslipidemia, Alzheimer's disease, cerebrovascular disease with prior strokes, loss of ability to walk since May 2018 and a generalized decline in both cognitive and motor function. She also has a history of a single seizure approximately 1 year ago consisting of a generalized tonic-clonic seizure. She was functioning relatively well until February 17, 2019 when she was taken to [facility] after having a generalized tonic-clonic seizure at home. She was evaluated in the emergency room there and then sent to [facility] on February 18, 2019 to be taken care of by Dr. Marlow. During her workup at [facility], an MRI scan of the brain was performed and revealed an acute infarct of a small size in the left parietal area. This consultation was requested to evaluate and manage the patient from a neurological point of view. The patient herself was unable to give me much of a history because she was severely aphasic. Her also gave me a sketchy history. PAST MEDICAL HISTORY: Significant for hypertension, dyslipidemia, Alzheimer's disease, cerebrovascular disease with prior strokes, loss of ability to walk since May 2018 with generalized decline in both cognitive and motor function, and single seizure approximately 1 year ago of a generalized tonic-clonic nature. PRESENT MEDICATIONS: Include Senokot, hydralazine, clonidine, aspirin 81 mg daily, atenolol, Namzaric at home, heparin for DVT prophylaxis, DuoNeb inhaler, Tylenol p.r.n., MiraLAX p.r.n., Zofran p.r.n., Restoril p.r.n., and Pyridium p.r.n. FAMILY HISTORY: Significant for high blood pressure in other family members. PERSONAL HISTORY: Home, she lives with her . 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 Habits, there is no history of illicit drug use. She smoked for approximately three years in the past. She has no history of alcohol use. PHYSICAL EXAMINATION: GENERAL: She is a well-developed relatively well-nourished, but lean black lady, lying in bed, in no acute distress. VITAL SIGNS: Pulse 65 per minute, blood pressure 132/59 mmHg, respirations 18 per minute, and temperature 97.1 degrees Fahrenheit. HEENT: Head, normocephalic and atraumatic. EENT examination benign. NECK: No neck rigidity was observed. NEUROLOGICAL EXAMINATION: Mental status, she was awake and alert. She was oriented to self only. She was unable to cooperate for further mental status testing because of the severe mixed aphasia. Speech, she had mild dysarthria. Language, she had problems with comprehension, repetition, naming, and expression of language. CRANIAL NERVE II: She did blink to threat. She was unable to cooperate for confrontation testing. CRANIAL NERVES III, IV, AND : The external ocular movements were full and the pupils 3 mm in diameter, equal, round, regular, and reactive to light. CRANIAL NERVE V: She had normal facial sensations in the temporalis, masseters, and pterygoids function normally. CRANIAL NERVE VII: She had normal facial expressions and no facial asymmetry. CRANIAL NERVE VIII: She was able to hear and had no nystagmus. CRANIAL NERVE IX: The palate moved symmetrically on phonation. CRANIAL NERVE X: She had no hoarseness of voice. CRANIAL NERVE XI: The sternocleidomastoids and trapezii function normally. CRANIAL NERVE XII: Tongue was in the midline without any fasciculations or atrophy. MOTOR SYSTEM: The tone was increased in all four extremities with a combination of spasticity and gegenhalten. Examination of muscle mass revealed generalized muscle wasting. Examination of power was exceedingly difficult to perform because of inability to cooperate. She did move all four extremities on command. However, she was generally weak. SENSORY EXAMINATION: She had intact sensations to deep pain. Other sensory modalities could not be tested adequately. REFLEXES: 1+ and bilaterally symmetrical at the biceps, triceps, brachioradialis, and knees, 0 at both ankles. The plantar responses were flexor bilaterally. Coordination, stance, and gait could not be tested. DIAGNOSTIC IMPRESSION: 1. The patient is an 83-year-old right-handed black lady, who has a long history of hypertension, dyslipidemia, Alzheimer's disease, cerebrovascular disease with prior strokes loss of ability to walk since May 2018, generalized decline in cognitive and motor function, and a single seizure approximately 1 year ago of a generalized tonic-clonic nature. On 02/17/2019, she had another generalized tonic-clonic seizure at home. 2. On neurological examination at this time, she is oriented to self only. Has a significant mixed aphasia making further mental status testing impossible. She, however, does not demonstrate any focal or lateralizing neurological findings. She is generally weak. Exhibits gegenhalten and spasticity in all four extremities. She has globally diminished deep tendon reflexes and is unable to stand and walk. 3. The MRI scan of the brain reveals atrophy, deep white matter disease of a chronic nature, and in addition, an acute small left parietal infarct. 4. Laboratory data obtained thus far reveal that she is anemic with a hemoglobin of 9.2 grams. Her chemistry panel reveals an elevated sodium of 147, elevated chloride at 115, BUN elevated at 25. Her urinalysis reveals 3+ leukocyte esterase, 5 to 10 red blood cells, and 30 to 40 white blood cells per high-power field. 5. The patient's history and neurological examination are most consistent with a second generalized tonic-clonic seizure over a period of 1 year in this patient, who has a prior history of Alzheimer's disease and cerebrovascular disease, who also has a urinary tract infection and has had an acute small left parietal infarct. Her risk of having another seizure is significantly elevated. RECOMMENDATIONS: 1. Agree with management thus far. 2. Treatment of urinary tract infection in an aggressive manner. 3. Correction of hemoglobin to greater than 10 g. 4. An EEG should be performed to evaluate the patient for ongoing ictal or interictal phenomena. 5. The patient will be started on Keppra 500 mg q.12 hours for seizure prophylaxis. 6. Continue to treat for cerebrovascular disease with aspirin 81 mg daily. 7. The patient will be observed closely and depending on how she fairs, further recommendations will be given. Thank you for entrusting me with the care of this patient. I shall follow her with you. Pipe Perkins M.D. DR: BLANCHE JOB#: [id number] CC:
--- NOTE | 2019-02-21 19:39 | NUR ---
HAND-OFF: Report given to Toni SALEH. Patient is stable.
--- NOTE | 2019-02-21 21:00 | NUR ---
NURSE NOTES: Received pt alert to self only. Responds to name appropriately, but does not respond appropriately to further commands. Pt shows no outward signs or symptoms of respiratory difficulties or distress. and daughter at bed side. Family inquiring about PT. Patient was seen by PT today and family updated accordingly. Pt now on puree diet with thin liquids. All due meds given. Seizure precautions in place. Bed at lowest level. Call light within reach. Patient in stable condition.
[2019-02-22] VITALS: BP 157/60
[2019-02-22 04:00] VITALS: BP 188/66
[2019-02-22] MEDS: 1/2NS w/KCl 20mEq 1000ml 1,000 ML IV SCH (04:10)
[2019-02-22] MEDS: cloNIDine 0.2mg Tab ORAL PRN (04:19)
[2019-02-22 06:28] LABS: BASOPHILS % (AUTO) 0.8 % (0.0-2.0); EOSINOPHILS % (AUTO) 2.5 % (0.0-3.0); HEMATOCRIT 27.3 % (37.0-47.0); LYMPHOCYTES % (AUTO) 34.3 % (20.0-45.0); MEAN CORPUSCULAR VOLUME 92 FL (80-99); MONOCYTES % (AUTO) 8.1 % (1.0-10.0); NEUTROPHILS % (AUTO) 54.3 % (45.0-75.0); PLATELET COUNT 205 K/UL (150-450); RED BLOOD COUNT 2.97 M/UL (4.20-5.40); RED CELL DISTRIBUTION WIDTH 12.4 % (11.6-14.8); WHITE BLOOD COUNT 6.8 K/UL (4.8-10.8)
[2019-02-22 06:51] LABS: BLOOD UREA NITROGEN 21 mg/dL (7-18); CALCIUM 8.6 MG/DL (8.5-10.1); CHLORIDE 111 MMOL/L (98-107); POTASSIUM 4.2 MMOL/L (3.5-5.1); SODIUM 141 MMOL/L (136-145)
[2019-02-22 07:17] LABS: CARBON DIOXIDE 21 MMOL/L (21-32)
--- NOTE | 2019-02-22 07:39 | NUR ---
NURSE NOTES: Pt currently sleeping. Requires assistance with meals. Breathing RA. Anticipated needs will be met. Urinary bag at this time, has minimal urine output, due start of shift. No presence of sediment in tubing. IV site patent no signs of infiltration noted upon this writing
--- NOTE | 2019-02-22 07:44 | NUR ---
HAND-OFF: Report given to THERESE Flores.
[2019-02-22 08:00] VITALS: BP 173/65
[2019-02-22] MEDS: Donepezil 10mg tab ORAL SCH (09:18)
[2019-02-22] MEDS: Atenolol 25mg tab ORAL SCH (09:18)
[2019-02-22] MEDS: Sennosides 8.6mg tab ORAL SCH (09:18)
[2019-02-22 09:19] VITALS: BP 173/65
[2019-02-22] MEDS: Aspirin Baby 81mg ORAL SCH (09:19)
[2019-02-22] MEDS: HydrALAZINE 50mg tab ORAL SCH (09:19)
[2019-02-22] MEDS: Heparin 5000 units/ml inj SUBQ SCH (09:22)
--- NOTE | 2019-02-22 10:13 | NUR ---
DISCHARGE PLANNING PATIENT WAS REFERRED TO AND ACCEPTED AT [facility]
[2019-02-22] MEDS ORDERED: NS Irrig 1000ml ONE ×2 (10:27→10:29)
--- NOTE | 2019-02-22 10:27 | Pulmonology Progress Note ---
Assessment/Plan Problems: (1) UTI (urinary tract infection) (2) Tonic clonic seizures (3) Acute metabolic encephalopathy (4) COPD (5) HTN (hypertension) Assessment/Plan doing better no new complains check cultures respiratory treatment monitor BP dvt prophylaxis dc home today Subjective ROS Limited/Unobtainable: No Constitutional: Reports: no symptoms HEENT: Repors: no symptoms Respiratory: Reports: no symptoms Allergies: Coded Allergies: LEVONORGESTREL-ETH ESTRA (Verified Allergy, Unknown, 02/09/11) Objective Last 24 Hour Vital Signs Date Time Temp Pulse Resp B/P (MAP) Pulse Ox O2 Delivery O2 Flow Rate FiO2 02/22/19 09:19 173/65 02/22/19 09:18 60 173/65 02/22/19 08:00 98.0 60 14 173/65 (101) 02/22/19 04:19 188/66 02/22/19 04:00 96.5 54 15 188/66 (106) 98 02/22/19 00:00 97.5 56 16 157/60 (92) 96 02/21/19 21:18 164/69 02/21/19 21:00 Room Air 02/21/19 20:28 57 18 96 Room Air 21 02/21/19 20:00 99.1 69 17 164/69 (100) 97 02/21/19 17:42 151/56 02/21/19 16:00 97.1 65 18 132/59 (83) 95 02/21/19 13:05 140/55 02/21/19 12:00 97.7 57 19 139/60 (86) 95 Intake and Output 02/21/19 02/22/19 19:00 07:00 Intake Total 1218 ml 520 ml Output Total 300 ml Balance 918 ml 520 ml Intake Oral 618 ml 120 ml IV Total 600 ml 400 ml Output Urine Total 300 ml General Appearance: WD/WN HEENT: normocephalic, atraumatic Respiratory/Chest: chest wall non-tender, lungs clear Breasts: no masses Cardiovascular: normal peripheral pulses, normal rate Abdomen: normal bowel sounds, soft, non tender Genitourinary: normal external genitalia Extremities: no cyanosis Skin: no rash Laboratory Tests 02/22/19 05:45: White Blood Count 6.8, Red Blood Count 2.97L, Hemoglobin 9.0L, Hematocrit 27.3L , Mean Corpuscular Volume 92, Mean Corpuscular Hemoglobin 30.3, Mean Corpuscular Hemoglobin Concent 33.0, Red Cell Distribution Width 12.4, Platelet Count 205, Mean Platelet Volume 5.2L, Neutrophils (%) (Auto) 54.3, Lymphocytes ( %) (Auto) 34.3, Monocytes (%) (Auto) 8.1, Eosinophils (%) (Auto) 2.5, Basophils (%) (Auto) 0.8, Sodium Level 141, Potassium Level 4.2, Chloride Level 111H, Carbon Dioxide Level 21, Blood Urea Nitrogen 21H, Creatinine 1.0, Estimat Glomerular Filtration Rate , Glucose Level 103, Calcium Level 8.6 Current Medications Medications (Trade) Dose Ordered Sig/Gustavo Route PRN Reason Start Time Stop Time Status Last Admin Dose Admin Acetaminophen (Tylenol) 650 mg Q4H PRN ORAL fever 02/18/19 07:15 03/20/19 07:14 Albuterol/ Ipratropium (Albuterol/ Ipratropium) 3 ml Q4H PRN HHN Shortness of Breath 02/18/19 07:15 02/23/19 07:14 Aspirin (ASA) 81 mg DAILY ORAL 02/19/19 09:00 03/21/19 08:59 02/22/19 09:19 Atenolol (Tenormin) 25 mg DAILY ORAL 02/18/19 09:00 03/20/19 08:59 02/22/19 09:18 Clonidine HCl (Catapres tab) 0.2 mg Q6H PRN ORAL SBP MORE THAN 160 02/19/19 14:15 03/21/19 14:14 02/22/19 04:19 Donepezil HCl (Aricept) 10 mg DAILY ORAL 02/18/19 09:00 03/20/19 08:59 02/22/19 09:18 Heparin Sodium (Porcine) (Heparin 5000 units/ml) 5,000 units EVERY 12 HOURS SUBQ 02/18/19 09:00 03/20/19 08:59 02/22/19 09:22 Hydralazine HCl (Apresoline) 100 mg TID ORAL 02/20/19 08:20 03/22/19 08:19 02/22/19 09:19 Levetiracetam (Keppra) 500 mg Q12HR ORAL 02/21/19 21:00 03/23/19 20:59 02/22/19 09:19 Ondansetron HCl (Zofran) 4 mg Q6H PRN IVP Nausea & Vomiting 02/18/19 07:15 03/20/19 07:14 Phenazopyridine HCl (Pyridium) 100 mg DAILY PRN ORAL dysuria 02/18/19 07:15 03/20/19 07:14 Polyethylene Glycol (Miralax) 17 gm DAILYPRN PRN ORAL Constipation 02/18/19 07:15 03/20/19 07:14 Sennosides (Senokot) 8.6 mg DAILY ORAL 02/20/19 16:30 03/22/19 16:29 02/22/19 09:18 Sodium 1,000 ml @ 50 mls/hr Q20H IV 02/19/19 15:00 03/21/19 14:59 02/22/19 04:10 Temazepam (Restoril) 15 mg HSPRN PRN ORAL Insomnia 02/18/19 07:15 02/25/19 07:14 Chanel Gardiner MD Feb 22, 2019 10:27
--- NOTE | 2019-02-22 10:30 | NUR ---
NURSE NOTES: Pt required assistance to be fed. Responds to name being called. Is able to answer simple questions. Ate minimally for breakfast. Pt sleeping deeply, required to be shaken awake. Pulse counted manually due to low results by automated v/s machine. Pulse irregular, but easily palpable. Attempted to give Catapres PRN due to b/p > 170 unable to give 2 to previous dose being given 4 hours. Dose is q6. Blood pressure reassessed b/p in normal range without Catapres. Medication returned to pixus. b/p 150 /66 pulses remains at 60
[2019-02-22] MEDS ORDERED: Tubing IV Secondary IV ONE (10:31)
[2019-02-22] MEDS ORDERED: D5NS 1000ml IV ONE (10:31)
[2019-02-22] MEDS ORDERED: NS 275ml ONE (10:31)
--- NOTE | 2019-02-22 11:00 | NUR ---
DISCHARGE PLANNED PATIENT IS DISCHARGING TO THE [facility] ROOM WILL BE PROVIDED WHEN NURSE CALLS TO GIVE REPORT [facility] HAS BEEN ARRANGED FOR 1230 DISCUSSED DISCHARGE WITH AT BEDSIDE AND HE IS IN AGREEMENT WITH DISCHARGE
--- NOTE | 2019-02-22 11:56 | Infectious Diseases Prog Note ---
Assessment/Plan Assessment/Plan Assessment: ?Seizure episode Probable UTI -u/a wbc 30-40, nit neg, leuk +3; ucx 30-40k mixed gram positive growth Afebrile No leukocytosis Acute on chronic encephalopathy HTN Dementia Plan: -Continue to monitor off abx -02/21 SP Ceftriaxone #4 -f/u cx -Monitor CBC/CMP, temperatures -aspiration precautions Thank you for this consultation. Will continue to follow along with you. Subjective Allergies: Coded Allergies: LEVONORGESTREL-ETH ESTRA (Verified Allergy, Unknown, 02/09/11) Subjective afebrile no leukocytosis Bcx NTD Objective Vital Signs Last 24 Hour Vital Signs Date Time Temp Pulse Resp B/P (MAP) Pulse Ox O2 Delivery O2 Flow Rate FiO2 02/22/19 09:19 173/65 02/22/19 09:18 60 173/65 02/22/19 09:00 Room Air 02/22/19 08:00 98.0 60 14 173/65 (101) 02/22/19 07:55 62 18 98 Room Air 21 02/22/19 04:19 188/66 02/22/19 04:00 96.5 54 15 188/66 (106) 98 02/22/19 00:00 97.5 56 16 157/60 (92) 96 02/21/19 21:18 164/69 02/21/19 21:00 Room Air 02/21/19 20:28 57 18 96 Room Air 21 02/21/19 20:00 99.1 69 17 164/69 (100) 97 02/21/19 17:42 151/56 02/21/19 16:00 97.1 65 18 132/59 (83) 95 02/21/19 13:05 140/55 02/21/19 12:00 97.7 57 19 139/60 (86) 95 Height (Feet): 5 Height (Inches): 6.00 Weight (Pounds): 175 Objective General Appearance: NAD HEENT: normocephalic, atraumatic, MMM, EOMI Respiratory/Chest: CTAB , No W Cardiovascular/Chest: RRR, S,1 S2 Abdomen: normal bowel sounds, Soft , Not tender Laboratory Tests Test 02/22/19 05:45 White Blood Count 6.8 K/UL (4.8-10.8) Red Blood Count 2.97 M/UL (4.20-5.40) L Hemoglobin 9.0 G/DL (12.0-16.0) L Hematocrit 27.3 % (37.0-47.0) L Mean Corpuscular Volume 92 FL (80-99) Mean Corpuscular Hemoglobin 30.3 PG (27.0-31.0) Mean Corpuscular Hemoglobin Concent 33.0 G/DL (32.0-36.0) Red Cell Distribution Width 12.4 % (11.6-14.8) Platelet Count 205 K/UL (150-450) Mean Platelet Volume 5.2 FL (6.5-10.1) L Neutrophils (%) (Auto) 54.3 % (45.0-75.0) Lymphocytes (%) (Auto) 34.3 % (20.0-45.0) Monocytes (%) (Auto) 8.1 % (1.0-10.0) Eosinophils (%) (Auto) 2.5 % (0.0-3.0) Basophils (%) (Auto) 0.8 % (0.0-2.0) Sodium Level 141 MMOL/L (136-145) Potassium Level 4.2 MMOL/L (3.5-5.1) Chloride Level 111 MMOL/L (98-107) H Carbon Dioxide Level 21 MMOL/L (21-32) Blood Urea Nitrogen 21 mg/dL (7-18) H Creatinine 1.0 MG/DL (0.55-1.30) Estimat Glomerular Filtration Rate mL/min (>60) Glucose Level 103 MG/DL (74-106) Calcium Level 8.6 MG/DL (8.5-10.1) Current Medications Medications (Trade) Dose Ordered Sig/Gustavo Route PRN Reason Start Time Stop Time Status Last Admin Dose Admin Acetaminophen (Tylenol) 650 mg Q4H PRN ORAL fever 02/18/19 07:15 03/20/19 07:14 Albuterol/ Ipratropium (Albuterol/ Ipratropium) 3 ml Q4H PRN HHN Shortness of Breath 02/18/19 07:15 02/23/19 07:14 Aspirin (ASA) 81 mg DAILY ORAL 02/19/19 09:00 03/21/19 08:59 02/22/19 09:19 Atenolol (Tenormin) 25 mg DAILY ORAL 02/18/19 09:00 03/20/19 08:59 02/22/19 09:18 Clonidine HCl (Catapres tab) 0.2 mg Q6H PRN ORAL SBP MORE THAN 160 02/19/19 14:15 03/21/19 14:14 02/22/19 04:19 Donepezil HCl (Aricept) 10 mg DAILY ORAL 02/18/19 09:00 03/20/19 08:59 02/22/19 09:18 Heparin Sodium (Porcine) (Heparin 5000 units/ml) 5,000 units EVERY 12 HOURS SUBQ 02/18/19 09:00 03/20/19 08:59 02/22/19 09:22 Hydralazine HCl (Apresoline) 100 mg TID ORAL 02/20/19 08:20 03/22/19 08:19 02/22/19 09:19 Levetiracetam (Keppra) 500 mg Q12HR ORAL 02/21/19 21:00 03/23/19 20:59 02/22/19 09:19 Ondansetron HCl (Zofran) 4 mg Q6H PRN IVP Nausea & Vomiting 02/18/19 07:15 03/20/19 07:14 Phenazopyridine HCl (Pyridium) 100 mg DAILY PRN ORAL dysuria 02/18/19 07:15 03/20/19 07:14 Polyethylene Glycol (Miralax) 17 gm DAILYPRN PRN ORAL Constipation 02/18/19 07:15 03/20/19 07:14 Sennosides (Senokot) 8.6 mg DAILY ORAL 02/20/19 16:30 03/22/19 16:29 02/22/19 09:18 Sodium 1,000 ml @ 50 mls/hr Q20H IV 02/19/19 15:00 03/21/19 14:59 02/22/19 04:10 Temazepam (Restoril) 15 mg HSPRN PRN ORAL Insomnia 02/18/19 07:15 02/25/19 07:14 Erica Brown M.D. Feb 22, 2019 11:56
--- NOTE | 2019-02-22 12:00 | NUR ---
NURSE NOTES: Pt has orders to transfer to [facility]. [facility] for transferring. Report given to Josephine is at bedside. optical laboratory manager spoke to in regards to planning
--- NOTE | 2019-02-22 13:40 | NUR ---
NURSE NOTES:REPORT GIVEN TO BENJIE ([facility] TECH)NO BELONGINGS.ANAIS DC/D.PT.STABLE ON ASSISTANT CORPORATE SECRETARY.ASSIGNED RN(JACKSON) AWARE,
--- NOTE | 2019-02-22 14:30 | NUR ---
NURSE NOTES: Pt discharge via gurney. IV removed , wylie catheter removed. Medical Records request form taken downstairs requesting records. did not understand protocol for receiving medical records. Repeatedly asked the same question. Odd behavior looking out the window, and opening bathroom door. Information reinforced
--- NOTE | 2019-02-23 11:46 | Discharge Summary ---
Discharge Summary Discharge Summary _ DATE OF ADMISSION: 02/18/2019 DATE OF DISCHARGE: 02/22/2019 DISCHARGED BY: Dr. Marlow REASON FOR ADMISSION: 83 years old female with past medical history significant for hypertension, dyslipidemia, CVA, Alzheimer's dementia, initially presented to [facility] with altered mental status. CONSULTANTS: neurologist Dr. Perkins hospitalist Dr. Gardiner ID specialist Dr. Brown [facility] COURSE: Patient admitted to medical surgical floor. Patient started on broad-spectrum antibiotics. Urine culture revealed mixed gram-positive organisms. Blood cultures were negative. Urine culture report from [place] revealed no growth. Antibiotic stopped. Patient remained afebrile no leukocytosis. Infectious disease specialist recommended to monitor patient off antibiotics. Echocardiogram revealed preserved ejection fraction of 60% with mild left ventricular hypertrophy. No evidence of wall motion abnormality. Right ventricular systolic pressure 36 , consistent with a mild pulmonary hypertension. Moderate aortic insufficiency noted. MRI of the brain revealed tiny acute CVA in the left occipital white matter. No significant mass-effect or edema. No evidence of hemorrhage. Moderate atrophy of the brain noted. Extensive chronic small vessel disease, involving periventricular white matter noted as well. 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 in setting of prior history of Alzheimer's disease and cerebrovascular disease. Patient also had acute small left parietal infarct, as was evident on MRI scan. Risk of having another seizure was significantly elevated. Patient started on Keppra for seizure prophylaxis. Seizure precaution maintained. No evidence of seizure activity while in the hospital. Patient started on antiplatelet therapy with aspirin. EEG will be done as outpatient. Blood pressure was managed with beta-sohail and hydralazine. Clonidine was on board as needed. DVT prophylaxis provided. Supplemental oxygen titrated as needed to keep pulse oximetry above 92%. Pulmonary toilet with bronchodilator was on board as needed. Supportive care provided. Bowel regimen instituted. Symptomatic treatment provided. Renal parameters and electrolytes were closely monitored. Hypernatremia resolved. Nephrotoxic's were avoided. Transfer was arranged to acute rehabilitation unit at [facility]. Patient was stable for transfer. FINAL DIAGNOSES: Acute left occipital cerebrovascular accident Altered mental status most likely secondary to toxic metabolic encephalopathy due to acute CVA Probable urinary tract infection Hypernatremia-resolved Hypertension Dyslipidemia COPD Alzheimer's dementia Tonic-clonic seizure DISCHARGE MEDICATIONS: See Medication Reconciliation list. DISCHARGE INSTRUCTIONS: Patient was discharged to [facility] [place] for acute rehabilitation unit. Follow-up with medical doctor at the accepting facility. I have been assigned to dictate discharge summary for this account. I was not involved in the patient's management. Ronel Manzanares NP Feb 23, 2019 11:46
== END 2019-02-22 14:38 | disposition short-term general hospital (02) | DRG 64 ==
LOC: 3E 06:29
DX: I63.89 Other cerebral infarction (principal); G92 Toxic encephalopathy; N39.0 Urinary tract infection, site not specified; E87.0 Hyperosmolality and hypernatremia; G40.89 Other seizures; Z86.73 Personal history of transient ischemic attack (TIA), and cerebral infarction without residual deficits; I10 Essential (primary) hypertension; E78.5 Hyperlipidemia, unspecified; Z79.02 Long term (current) use of antithrombotics/antiplatelets; G30.9 Alzheimer's disease, unspecified; F02.80 Dementia in other diseases classified elsewhere, unspecified severity, without behavioral disturbance, psychotic disturbance, mood disturbance, and anxiety; I27.20 Pulmonary hypertension, unspecified; J44.9 Chronic obstructive pulmonary disease, unspecified; Z88.8 Allergy status to other drugs, medicaments and biological substances; R26.2 Difficulty in walking, not elsewhere classified; R47.01 Aphasia
CPT/HCPCS: 36415; 70551; 80048; 80053; 80299; 81001; 83735; 84100; 84484; 85025; 85651; 86140; 87040; 87086; 92610; 93306; 94664

== ENCOUNTER 2019-11-30 05:48 | Inpatient (IN) | payer MEDICARE, OTHER ==
[~2019-11-30] VITALS: Ht 167.6 cm; Wt 71.2 kg
[2019-11-30] VITALS (23 sets, daily range): BP systolic 36–121; BP diastolic 13–69
[2019-11-30] MEDS ORDERED: FERROUS SULFAT325 MG GT (06:24)
[2019-11-30] MEDS ORDERED: HEPARIN SO5000 UNIT2 SUBQ (06:24)
[2019-11-30] MEDS ORDERED: LEVETIRACETAM500 M1 GT (06:24)
[2019-11-30] MEDS ORDERED: DOBUTamine Inj 500 MG in NS 210 ML IV SCH (06:30)
--- NOTE | 2019-11-30 06:32 | Emergency Room Report ---
History of Present Illness General Chief Complaint: CPR Source: Medical Record, EMS (Anthony Bates MD) Present Illness HPI 83-year-old female presents in cardiac arrest. Brought in by EMS from [facility]. Per nursing patient had agonal breathing since early this morning. Went into cardiac arrest in route to the hospital. Given epi x2. Chest compressions underway by EMS. Unable to provide any additional history at this time. No reported fevers or chills. No other aggravating relieving factors. No other associated symptoms (Anthony Bates MD) Allergies: Coded Allergies: LEVONORGESTREL-ETHINYL ESTRADIOL (Verified Allergy, Unknown, 02/09/11) COVID-19 Screening Contact w/high risk pt: Yes Recent Travel to affected area: No Experienced COVID-19 symptoms?: Yes COVID-19 symptoms experienced: Shortness of Breath COVID-19 Testing performed VEHICLE SAFETY INSPECTOR: Yes COVID-19 Screening: Negative COVID-19 COVID-19 Testing Source: per facility 2 wks ago (Anthony Bates MD) Patient History Past Medical History: HTN, CVA/TIA, dementia Past Surgical History: none Pertinent Family History: none Social History: Denies: smoking, alcohol use, drug use Now: No Immunizations: UTD Reviewed Nursing Documentation: PMH: Agreed; PSxH: Agreed (Anthony Bates MD) Nursing Documentation-PMH Hx Cardiac Problems: Yes Hx Hypertension: Yes Hx Asthma: No - Allergies Hx Cancer: No Hx Gastrointestinal Problems: No Hx Neurological Problems: Yes - stroke Hx Dementia: Yes Hx Seizures: Yes - (Anthony Bates MD) Review of Systems All Other Systems: limited (Anthony Bates MD) Physical Exam Vital Signs Date Time Temp Pulse Resp B/P (MAP) Pulse Ox O2 Delivery O2 Flow Rate FiO2 11/30/19 05:51 Ambu-Bag 11/30/19 05:58 108 15 100 Sp02 EP Interpretation: reviewed, abnormal General Appearance: no apparent distress, other - nonverbal Head: normocephalic, atraumatic Eyes: bilateral eye normal inspection, bilateral eye PERRL ENT: hearing grossly normal, normal pharynx, no angioedema, normal voice Neck: full range of motion, supple/symm/no masses Respiratory: chest non-tender, normal breath sounds, crackles, speaking full sentences Cardiovascular #1: regular rate, rhythm, no edema Cardiovascular #2: 2+ carotid (R), 2+ carotid (L), 2+ radial (R), 2+ radial (L) , 2+ dorsalis pedis (R), 2+ dorsalis pedis (L) Gastrointestinal: normal bowel sounds, non tender, soft, non-distended, no guarding, no rebound Rectal: deferred Genitourinary: normal inspection, no CVA tenderness Musculoskeletal: back normal, gait/station normal, non-tender Neurologic: other - Nonverbal Psychiatric: other - Nonverbal Reflexes: 3+ bicep (R), 3+ bicep (L), 3+ tricep (R), 3+ tricep (L), 3+ knee (R) , 3+ knee (L) Skin: other - See nursing skin note Lymphatic: no adenopathy (Anthony Bates MD) Procedures Critical Care Time Critical Care Time i. I feel this is a highly complex case requiring extensive working including EKG/Rhythm strip, Xray/CT/US, Blood/urine lab work, repeat exams while in ED, and administration of strong opiates/narcotics for pain control, admission to hospital or close patient follow up. Total time: 60 min bedside evaluation and treatment excludes procedures (EKG). Reason for critical care: cardiac arrest Possible complications: hypotension, hypertension, NM, shock, arrhythmias, metabolic acidosis, end organ damage, respiratory failure. Interventions: Chest compressions, epinephrine, calcium, bicarb, intubation repeat rhythm checks Course: Presenting in cardiac arrest. Rhythm PEA. Given epi x2 by EMS. Intubated in ED. Chest compressions. Given calcium and bicarb. Given multiple rounds of epinephrine with return of pulse. Consultations: nursing staff, EMS, family Performed by: Dr Bates Tolerated well condition = critical j. because of unstable vital signs this patient had a condition that could potentially threaten life or limb. I feel this is a critical patient who required my full attention while patient was considered critical. Total Critical Care Time excluding procedures was greater than 60 minutes (Anthony Bates MD) Critical Care Time Total critical care time: Approximately 45 minutes Due to a high probability of clinically significant, life threatening deterioration, the patient required the highest level of preparedness to intervene emergently and I personally spent this critical care time directly and personally managing the patient. This critical care time included obtaining a history, examining the patient, pulse oximetry, ordering and reviewing studies , ordering treatments, evaluating response to treatment and updating management plan as needed, frequent reassessment and discussion with other providers as well as arranging for ultimate disposition. This critical to care time was performed to assess and manage the high probability of life-threatening deterioration that could result in multiorgan failure. This critical care time is separate from the separately billable procedures and treating other patients. (Gerson Malone MD) Central Line Central Line : Consent: Emergent Central Line Lumen: triple Maximal Sterile Barrier Tech: yes cap, yes sterile gown, yes sterile gloves , yes large sterile sheet, yes hand hygiene, yes chlorhexidine prep Central Line Postion: femoral (L) Complications: none Central Line Post Position: sutured, good blood return Attempts: One Patient Tolerated: Well Complications: None (Gerson Malone MD) CPR/Code Blue CPR/Code Blue Narrative See CODE BLUE sheet for full narrative (Anthony Bates MD) CPR/Code Blue Narrative Called to patient bedside for CODE BLUE. The patient had experienced prior cardiac arrest and was intubated and on dobutamine. Chest compressions and epinephrine provided per ACLS protocol. Return of spontaneous circulation with narrow complex tachycardia possible junctional rhythm and incomplete right bundle branch block. Continuing dobutamine drip. (Gerson Malone MD) Intubation Intubation : Consent: Emergent Intubation Method: orotracheal Tube Size (cm): 7.5 Breath Sounds after Intubation: equal Post Intubation Xray: Yes Attempts: One Patient Tolerated: Well Complications: None (Anthony Bates MD) Medical Decision Making Diagnostic Impression: Primary Impression: Cardiac arrest Additional Impressions: Sepsis UTI (urinary tract infection) Pneumonia Suspected 2019 novel coronavirus infection ER Course Assumed care of the patient from previous provider pending labs and admission. Briefly, this is a 83-year-old female presenting from SNF and cardiac arrest status post ROSC and intubation. There is no pulsed form or other advanced directives and accompanying paperwork. Elevated white count and antibiotics were provided. She is currently on dobutamine drip as the patient became bradycardic and had another cardiac arrest. See full nursing note for details. Will admit to ICU. Prognosis is poor. 0858: Called to patient bedside again for CODE BLUE. The patient was progressively bradycardic and no pulse was palpable. PEA on monitor. CPR was started multiple rounds of epinephrine, bicarb and atropine given per ACLS protocol. Patient returned with strong bounding pulses and adequate blood pressure. A left femoral central line was placed under ultrasound guidance by me on first attempt with no complications. We will start levo fed which was ordered by admitting service. Discussed with family who is considering DNR status however at this time she remains full code. Laboratory Tests Test 11/30/19 06:05 White Blood Count 21.2 K/UL (4.8-10.8) H Red Blood Count 2.49 M/UL (4.20-5.40) L Hemoglobin 7.1 G/DL (12.0-16.0) L Hematocrit 25.2 % (37.0-47.0) L Mean Corpuscular Volume 101 FL (80-99) H Mean Corpuscular Hemoglobin 28.5 PG (27.0-31.0) Mean Corpuscular Hemoglobin Concent 28.2 G/DL (32.0-36.0) L Red Cell Distribution Width 20.2 % (11.6-14.8) H Platelet Count 266 K/UL (150-450) Mean Platelet Volume 4.0 FL (6.5-10.1) L Neutrophils (%) (Auto) % (45.0-75.0) Lymphocytes (%) (Auto) % (20.0-45.0) Monocytes (%) (Auto) % (1.0-10.0) Eosinophils (%) (Auto) % (0.0-3.0) Basophils (%) (Auto) % (0.0-2.0) Neutrophils % (Manual) Pending Lymphocytes % (Manual) Pending Platelet Estimate Pending Platelet Morphology Pending Urine Color Pale yellow Urine Appearance Turbid Urine pH 9 (4.5-8.0) Urine Specific [place] 1.015 (1.005-1.035) Urine Protein 3+ (NEGATIVE) H Urine Glucose (UA) Negative (NEGATIVE) Urine Ketones Negative (NEGATIVE) Urine Blood 4+ (NEGATIVE) H Urine Nitrite Positive (NEGATIVE) H Urine Bilirubin Negative (NEGATIVE) Urine Urobilinogen Normal MG/DL (0.0-1.0) Urine Leukocyte Esterase 3+ (NEGATIVE) H Urine RBC 10-15 /HPF (0 - 2) H Urine WBC 5-10 /HPF (0 - 2) H Urine Squamous Epithelial Cells Few /LPF (NONE/OCC) Urine Uric Acid Crystals /LPF (NONE) Urine Triple Phosphate Crystals Moderate /LPF (NONE) H Urine Amorphous Sediment Many /LPF (NONE) H Urine Bacteria Moderate /HPF (NONE) H Sodium Level 138 MMOL/L (136-145) Potassium Level 5.2 MMOL/L (3.5-5.1) H Chloride Level 101 MMOL/L (98-107) Carbon Dioxide Level 21 MMOL/L (21-32) Anion Gap 16 mmol/L (5-15) H Blood Urea Nitrogen 32 mg/dL (7-18) H Creatinine 1.0 MG/DL (0.55-1.30) Estimated Glomerular Filtration Rate > 60 mL/min (>60) Glucose Level 322 MG/DL (74-106) H Lactic Acid Level 14.50 mmol/L (0.4-2.0) H Calcium Level 11.1 MG/DL (8.5-10.1) H Total Bilirubin 0.2 MG/DL (0.2-1.0) Aspartate Amino Transferase (AST) 152 U/L (15-37) H Alanine Aminotransferase (ALT) 79 U/L (12-78) H Alkaline Phosphatase 166 U/L (46-116) H Troponin I 0.036 ng/mL (0.000-0.056) Pro-B-Type Natriuretic Peptide 2696 pg/mL (0-125) H Total Protein 6.7 G/DL (6.4-8.2) Albumin 1.4 G/DL (3.4-5.0) L Globulin 5.3 g/dL Albumin/Globulin Ratio 0.3 (1.0-2.7) L (Gerson Malone MD) EKG Diagnostic Results EKG Time: 06:48 Rate: tachycardiac Other Impression Tachycardia with a left axis indeterminate rhythm. No ST segment changes. (Gerson Malone MD) Rhythm Strip Diag. Results Rhythm Strip Time: 06:48 EP Interpretation: yes Rate: 100s Rhythm: no PVC's, no ectopy (Gerson Malone MD) Chest X-Ray Diagnostic Results Chest X-Ray Diagnostic Results : Chest X-Ray Ordered: Yes # of Views/Limited/Complete: 1 View Indication: Shortness of Breath EP Interpretation: Yes Interpretation: other - Status post intubation with endotracheal tube above the basil. Bilateral opacities. Impression: Other - Satisfactory sedation, bilateral opacities consistent with pneumonia Electronically Signed by: Electronically signed by Dr. Gerson Malone (Gerson Malone MD) Last Vital Signs Date Time Temp Pulse Resp B/P (MAP) Pulse Ox O2 Delivery O2 Flow Rate FiO2 11/30/19 05:58 108 15 100 11/30/19 05:51 Ambu-Bag (Anthony Bates MD) Disposition: ADMITTED INPATIENT Condition: Critical Referrals: NON PHYSICIAN (PCP) Anthony Bates MD Nov 30, 2019 06:32 Gerson Malone MD Nov 30, 2019 07:05
[2019-11-30 06:44] LABS: ANION GAP 16 mmol/L (5-15); BLOOD UREA NITROGEN 32 mg/dL (7-18); CALCIUM 11.1 MG/DL (8.5-10.1); CARBON DIOXIDE 21 MMOL/L (21-32); CHLORIDE 101 MMOL/L (98-107); POTASSIUM 5.2 MMOL/L (3.5-5.1); SODIUM 138 MMOL/L (136-145)
[2019-11-30 06:47] LABS: HEMATOCRIT 25.2 % (37.0-47.0); HEMOGLOBIN 7.1 G/DL (12.0-16.0); MEAN CORPUSCULAR VOLUME 101 FL (80-99); PLATELET COUNT 266 K/UL (150-450); RED BLOOD COUNT 2.49 M/UL (4.20-5.40); RED CELL DISTRIBUTION WIDTH 20.2 % (11.6-14.8); WHITE BLOOD COUNT 21.2 K/UL (4.8-10.8)
[2019-11-30 06:55] LABS: ALANINE AMINOTRANSFERASE 79 U/L (12-78); ALBUMIN 1.4 G/DL (3.4-5.0); ALBUMIN/GLOBULIN RATIO 0.3 (1.0-2.7); ALKALINE PHOSPHATASE 166 U/L (46-116); ASPARTATE AMINO TRANSFERASE 152 U/L (15-37); BILIRUBIN,TOTAL 0.2 MG/DL (0.2-1.0)
[2019-11-30 07:00] LABS: APPEARANCE,URINE TURBID; BILIRUBIN, URINE NEGATIVE (NEGATIVE); COLOR,URINE PALE YELLOW; GLUCOSE, URINE (UA) NEGATIVE (NEGATIVE); KETONES,URINE NEGATIVE (NEGATIVE); LEUKOCYTE ESTERASE ,URINE 3+ (NEGATIVE); NITRITE,URINE POSITIVE (NEGATIVE); PH,URINE 9 (4.5-8.0); PROTEIN,URINE 3+ (NEGATIVE); UROBILINOGEN,URINE NORMAL MG/DL (0.0-1.0)
[2019-11-30] MEDS ORDERED: Vancomycin 1 GM in NS 275 ML IVPB ONE (07:00)
[2019-11-30] MEDS ORDERED: Piperacillin/Tazobactam 3.375 GM in NS 110 ML IVPB ONE (07:00)
[2019-11-30] MEDS ORDERED: Albuterol/Ipratropium 3ml neb HHN PRN (08:15)
[2019-11-30] MEDS ORDERED: Miralax 17gm pkt ORAL PRN (08:15)
[2019-11-30] MEDS ORDERED: LORazepam Inj 2mg/ml 1ml IV PRN (08:15)
[2019-11-30] MEDS ORDERED: Norepinephrine 4mg/NS Premix 250 ML IV SCH (08:15)
[2019-11-30] MEDS ORDERED: Morphine Sulfate 4mg/ml Inj (IV USE ONLY) IVP PRN (08:15)
[2019-11-30] MEDS ORDERED: Levophed 4mg/4mL Inj IV ONE (08:46)
[2019-11-30] MEDS ORDERED: Sodium Bicarbonate 50ml Carp ONE ×2 (08:47→14:11)
[2019-11-30] MEDS ORDERED: Heparin 5000 units/ml inj SUBQ SCH (09:00)
[2019-11-30] MEDS ORDERED: Pantoprazole Inj IVP SCH (09:00)
[2019-11-30] MEDS: NS IV SCH ×2 (09:01→11:39)
[2019-11-30] MEDS: NOREPINEPHRINE BITARTRATE IV SCH ×2 (09:01→11:39)
[2019-11-30] MEDS ORDERED: Ertapenem 1 GM in NS 55 ML IV SCH (10:00)
--- NOTE | 2019-11-30 10:03 | Diagnostic Imaging Report ---
Procedure: XRAY Chest 1v Reason for study: Reason For Exam: SOB Comparison films: 02/11/2013. FINDINGS: There is an endotracheal tube in satisfactory position. Vascularity is normal. Bilateral infiltrates noted. Cardiomegaly is unchanged. There may be a tiny left effusion. The bony thorax appear unremarkable. IMPRESSION: Endotracheal tube in good position. Bilateral infiltrates and tiny left effusion.
[2019-11-30] MEDS ORDERED: Amikacin 1,000 MG in NS 110 ML IV ONE (11:00)
[2019-11-30] MEDS ORDERED: Phenylephrine 50 MG in D5W 245 ML IV SCH (11:00)
--- NOTE | 2019-11-30 11:05 | Consultation ---
History of Present Illness General Date patient seen: Nov 30, 2019 Chief Complaint: CPR Present Illness HPI 83-year-old female with hx of CVA, Gtube feeding, longterm resident presented by paramedics in cardiac arrest. Per nursing at longterm patient had agonal breathing since early this morning. Went into cardiac arrest in route to the hospital. Given epi x2. Chest compressions underway by EMS. Pt was intubated and revived in ER and was started on Levophed drip and transferred to ICU. Pt's family including and daughter are considering DNR. Allergies: Coded Allergies: LEVONORGESTREL-ETHINYL ESTRADIOL (Verified Allergy, Unknown, 02/09/11) Medication History Scheduled Atenolol* (Tenormin*), 25 MG ORAL DAILY, (Reported) Clopidogrel Bisulfate* (Plavix*), 75 MG ORAL DAILY, (Reported) Donepezil Hcl* (Donepezil Hcl*), 10 MG ORAL DAILY, (Reported) Ferrous Sulfate* (Ferrous Sulfate*), 325 MG GT DAILY, (Reported) Heparin Sod (Porcine) (Heparin Sodium*), 5,000 UNITS SUBQ EVERY 12 HOURS, ( Reported) Levetiracetam (Levetiracetam), 500 MG GT BID, (Reported) Olmesartan Medoxomil (Benicar), 40 MG ORAL DAILY, (Reported) Sertraline Hcl* (Sertraline Hcl*), 25 MG ORAL DAILY, (Reported) Simvastatin (Zocor), 20 MG ORAL DAILY, (Reported) Patient History Healthcare decision maker Resuscitation status Advanced Directive on File Past Medical/Surgical History Past Medical/Surgical History: (1) Feeding by G-tube (2) CVA (cerebral vascular accident) (3) COPD (4) HTN (hypertension) Review of Systems All Other Systems: negative except mentioned in HPI Physical Exam General Appearance: thin Lines, tubes and drains: peripheral, central line HEENT: normocephalic, atraumatic Neck: non-tender, normal alignment Respiratory/Chest: chest wall non-tender, lungs clear Cardiovascular/Chest: normal peripheral pulses, normal rate Abdomen: normal bowel sounds, non tender Genitourinary/Rectal: normal genital exam, normal rectal exam Extremities: normal range of motion Skin Exam: normal pigmentation Last 24 Hour Vital Signs Date Time Temp Pulse Resp B/P (MAP) Pulse Ox O2 Delivery O2 Flow Rate FiO2 11/30/19 10:42 105 20 100 11/30/19 09:40 99.0 96 22 94/69 100 Mechanical Ventilator 15.0 100 11/30/19 09:31 103 17 100 11/30/19 09:25 88/63 11/30/19 09:25 94/65 11/30/19 09:20 77/40 11/30/19 09:15 88/42 11/30/19 09:10 81/46 11/30/19 09:05 78/40 11/30/19 09:01 73/38 11/30/19 09:00 99.2 111 22 78/40 92 Mechanical Ventilator 15.0 100 11/30/19 08:49 136 18 100 11/30/19 08:00 99.0 95 21 65/39 100 Mechanical Ventilator 15.0 100 11/30/19 07:18 137 18 121/57 97 Mechanical Ventilator 100 11/30/19 07:13 21 63/13 78 Ambu-Bag 100 11/30/19 07:10 47 21 63/13 78 Ambu-Bag 100 11/30/19 07:05 15.0 100 11/30/19 07:00 99.0 71 15 96/69 Mechanical Ventilator 100 11/30/19 06:55 99.0 114 15 94/52 Mechanical Ventilator 100 11/30/19 06:53 127 21 100 11/30/19 06:15 99.0 45 15 53/33 Mechanical Ventilator 100 11/30/19 06:00 99.0 71 15 103/54 Mechanical Ventilator 100 11/30/19 05:58 108 15 100 11/30/19 05:51 Ambu-Bag 11/30/19 05:48 0 12 Ambu-Bag 15.0 Intake and Output 11/29/19 11/30/19 19:00 07:00 Output Total 100 ml Balance -100 ml Output Urine Total 100 ml Laboratory Tests Test 11/30/19 06:05 11/30/19 07:40 White Blood Count 21.2 K/UL (4.8-10.8) H Red Blood Count 2.49 M/UL (4.20-5.40) L Hemoglobin 7.1 G/DL (12.0-16.0) L Hematocrit 25.2 % (37.0-47.0) L Mean Corpuscular Volume 101 FL (80-99) H Mean Corpuscular Hemoglobin 28.5 PG (27.0-31.0) Mean Corpuscular Hemoglobin Concent 28.2 G/DL (32.0-36.0) L Red Cell Distribution Width 20.2 % (11.6-14.8) H Platelet Count 266 K/UL (150-450) Mean Platelet Volume 4.0 FL (6.5-10.1) L Neutrophils (%) (Auto) % (45.0-75.0) Lymphocytes (%) (Auto) % (20.0-45.0) Monocytes (%) (Auto) % (1.0-10.0) Eosinophils (%) (Auto) % (0.0-3.0) Basophils (%) (Auto) % (0.0-2.0) Differential Total Cells Counted 100 Neutrophils % (Manual) 24 % (45-75) L Lymphocytes % (Manual) 61 % (20-45) H Monocytes % (Manual) 11 % (1-10) H Eosinophils % (Manual) 2 % (0-3) Basophils % (Manual) 1 % (0-2) Band Neutrophils 1 % (0-8) Nucleated Red Blood Cells 3 /100 WBC Platelet Estimate Adequate Platelet Morphology Normal Polychromasia 1+ Hypochromasia 1+ Anisocytosis 2+ Macrocytosis 1+ Urine Color Pale yellow Urine Appearance Turbid Urine pH 9 (4.5-8.0) Urine Specific [place] 1.015 (1.005-1.035) Urine Protein 3+ (NEGATIVE) H Urine Glucose (UA) Negative (NEGATIVE) Urine Ketones Negative (NEGATIVE) Urine Blood 4+ (NEGATIVE) H Urine Nitrite Positive (NEGATIVE) H Urine Bilirubin Negative (NEGATIVE) Urine Urobilinogen Normal MG/DL (0.0-1.0) Urine Leukocyte Esterase 3+ (NEGATIVE) H Urine RBC 10-15 /HPF (0 - 2) H Urine WBC 5-10 /HPF (0 - 2) H Urine Squamous Epithelial Cells Few /LPF (NONE/OCC) Urine Uric Acid Crystals /LPF (NONE) Urine Triple Phosphate Crystals Moderate /LPF (NONE) H Urine Amorphous Sediment Many /LPF (NONE) H Urine Bacteria Moderate /HPF (NONE) H Sodium Level 138 MMOL/L (136-145) Potassium Level 5.2 MMOL/L (3.5-5.1) H Chloride Level 101 MMOL/L (98-107) Carbon Dioxide Level 21 MMOL/L (21-32) Anion Gap 16 mmol/L (5-15) H Blood Urea Nitrogen 32 mg/dL (7-18) H Creatinine 1.0 MG/DL (0.55-1.30) Estimat Glomerular Filtration Rate > 60 mL/min (>60) Glucose Level 322 MG/DL (74-106) H Lactic Acid Level 14.50 mmol/L (0.4-2.0) H 11.40 mmol/L (0.66-2.22) H Calcium Level 11.1 MG/DL (8.5-10.1) H Total Bilirubin 0.2 MG/DL (0.2-1.0) Aspartate Amino Transf (AST/SGOT) 152 U/L (15-37) H Alanine Aminotransferase (ALT/SGPT) 79 U/L (12-78) H Alkaline Phosphatase 166 U/L (46-116) H Troponin I 0.036 ng/mL (0.000-0.056) Pro-B-Type Natriuretic Peptide 2696 pg/mL (0-125) H Total Protein 6.7 G/DL (6.4-8.2) Albumin 1.4 G/DL (3.4-5.0) L Globulin 5.3 g/dL Albumin/Globulin Ratio 0.3 (1.0-2.7) L Height (Feet): 5 Height (Inches): 6.00 Weight (Pounds): 160 Medications Current Medications Medications (Trade) Dose Ordered Sig/Gustavo Route PRN Reason Start Time Stop Time Status Last Admin Dose Admin Acetaminophen (Tylenol) 650 mg Q4H PRN ORAL fever 11/30/19 08:15 12/30/19 08:14 Albuterol/ Ipratropium (Albuterol/ Ipratropium) 3 ml Q4H PRN HHN Shortness of Breath 11/30/19 08:15 12/05/19 08:14 Amikacin Sulfate 1000 mg/Sodium Chloride 114 ml @ 114 mls/hr ONCE ONCE IV 11/30/19 11:00 11/30/19 11:59 11/30/19 10:05 Dobutamine HCl 500 mg/Sodium Chloride 250 ml @ 0 mls/hr Q24H IV 11/30/19 06:30 12/30/19 06:29 11/30/19 07:40 Ertapenem 1 gm/ Sodium Chloride 55 ml @ 110 mls/hr Q24H IV 11/30/19 10:00 12/01/19 09:59 11/30/19 10:05 Heparin Sodium (Porcine) (Heparin 5000 units/ml) 5,000 units EVERY 12 HOURS SUBQ 11/30/19 09:00 01/14/20 08:59 Lorazepam (Ativan 2mg/ml 1ml) 2 mg Q2H PRN IV For Anxiety 11/30/19 08:15 12/07/19 08:14 Morphine Sulfate (Morphine Sulfate) 4 mg Q4H PRN IVP Severe Pain (Pain Scale 7-10) 11/30/19 08:15 12/07/19 08:14 Norepinephrine Bitartrate 4 mg/ Sodium Chloride 246 ml @ 0 mls/hr Q24H IV 11/30/19 10:00 12/30/19 09:59 11/30/19 09:01 Ondansetron HCl (Zofran) 4 mg Q6H PRN IVP Nausea & Vomiting 11/30/19 08:15 12/30/19 08:14 Pantoprazole (Protonix) 40 mg DAILY IVP 11/30/19 09:00 12/30/19 08:59 11/30/19 10:02 Phenylephrine HCl 50 mg/Dextrose 250 ml @ 0 mls/hr Q24H IV 11/30/19 11:00 12/30/19 10:59 Polyethylene Glycol (Miralax) 17 gm DAILYPRN PRN ORAL Constipation 11/30/19 08:15 12/30/19 08:14 Sodium Chloride 1,000 ml @ 100 mls/hr Q10H IVLG 11/30/19 09:00 12/30/19 08:59 11/30/19 10:03 Vancomycin HCl 1 gm/Dextrose 275 ml @ 183.3 mls/ hr Q24H IVPB 12/01/19 08:00 12/06/19 07:59 Assessment/Plan Problem List: (1) Cardiac arrest ICD Codes: I46.9 - Cardiac arrest, cause unspecified SNOMED: 510058162 (2) Nosocomial pneumonia ICD Codes: J18.9 - Pneumonia, unspecified organism; Y95 - Nosocomial condition SNOMED: 864696216 (3) COPD (4) HTN (hypertension) ICD Codes: I10 - Essential (primary) hypertension SNOMED: 71074215 (5) Tonic clonic seizures ICD Codes: G40.409 - Other generalized epilepsy and epileptic syndromes, not intractable, without status epilepticus SNOMED: 156235333 (6) Feeding by G-tube ICD Codes: Z93.1 - Gastrostomy status SNOMED: 223447568, 263032900, 027894730 (7) Suspected 2019 novel coronavirus infection ICD Codes: Z20.828 - Contact with and (suspected) exposure to other viral communicable diseases SNOMED: 524972717 (8) CVA (cerebral vascular accident) ICD Codes: I63.9 - Cerebral infarction, unspecified SNOMED: 477875749 Respiratory: monitor respiratory rate, adjust FIO2 Cardiac: continue to monitor HR/BP Renal: F/U I&O, check electrolytes Infectious Disease: check cultures, continue antibiotics Gastrointestinal: hold feedings Endocrine: monitor blood sugar Neurologic: PRN Ativan, keep patient comfortable Affect: PRN ativan Time Spent (Minutes): 40 Discussed with: nurses, consultants, disease case manager, other - family agreed with DNR. Chanel Gardiner MD Nov 30, 2019 11:05
--- NOTE | 2019-11-30 11:43 | History & Physical ---
History and Physical History & Physicial Dictated for Int Med-DR Marlow no. [id number]. ICU Kev Alegre MD Nov 30, 2019 11:43
--- NOTE | 2019-11-30 13:19 | Diagnostic Imaging Report ---
Indication: Endotracheal intubation. Technique: XRAY Chest 1v Comparison: None FINDINGS/IMPRESSION: * Endotracheal tube tip within 1 cm of the basil. Consider slight retraction by 1 to 2 cm for more optimal positioning. This recommendation was conveyed to the patient's treating ICU nurse via telephone conversation at time of dictation. * External pacer/the fibular pads overlie the chest. Heart size is stable. Atherosclerotic calcifications again noted in the aorta. * Slight interval increase in predominantly perihilar airspace opacities. No evidence of pneumothorax or significant pleural effusion
--- NOTE | 2019-11-30 13:35 | Consultation ---
History of Present Illness General Date patient seen: Nov 30, 2019 Chief Complaint: CPR Present Illness HPI 83 y/o F with hx of HTN, CVA/TIA, seizure disorder, dysphagia s/p GT, [place] resident ([facility]) presented to ED on 11/29 for cardiac arrest. Patient was noted to have agonal breathing at [facility]. En route to hospital patient had cardiac arrest; given epi x2. Patient had ROSC in ER and was intubated and started on Levophed drip. Tested COVID neg at the facility 2 weeks prior to admission. No reported fever, chills Allergies: Coded Allergies: LEVONORGESTREL-ETHINYL ESTRADIOL (Verified Allergy, Unknown, 02/09/11) Medication History Scheduled Atenolol* (Tenormin*), 25 MG ORAL DAILY, (Reported) Clopidogrel Bisulfate* (Plavix*), 75 MG ORAL DAILY, (Reported) Donepezil Hcl* (Donepezil Hcl*), 10 MG ORAL DAILY, (Reported) Ferrous Sulfate* (Ferrous Sulfate*), 325 MG GT DAILY, (Reported) Heparin Sod (Porcine) (Heparin Sodium*), 5,000 UNITS SUBQ EVERY 12 HOURS, ( Reported) Levetiracetam (Levetiracetam), 500 MG GT BID, (Reported) Olmesartan Medoxomil (Benicar), 40 MG ORAL DAILY, (Reported) Sertraline Hcl* (Sertraline Hcl*), 25 MG ORAL DAILY, (Reported) Simvastatin (Zocor), 20 MG ORAL DAILY, (Reported) Patient History Healthcare decision maker Resuscitation status Advanced Directive on File Patient History Narrative Pmhx: as above Shx: Denies: smoking, alcohol use, drug use Fhx: non contributory Review of Systems All Other Systems: negative except mentioned in HPI Physical Exam Physical Exam Narrative General Appearance: thin Lines, tubes and drains: peripheral, central line HEENT: normocephalic, atraumatic Neck: non-tender, normal alignment Respiratory/Chest: chest wall non-tender, lungs clear Cardiovascular/Chest: normal peripheral pulses, normal rate Abdomen: normal bowel sounds, non tender Extremities: normal range of motion Skin Exam: normal pigmentation Last 24 Hour Vital Signs Date Time Temp Pulse Resp B/P (MAP) Pulse Ox O2 Delivery O2 Flow Rate FiO2 11/30/19 12:38 86 20 100 11/30/19 12:00 100 11/30/19 11:51 99 17 82/39 (53) 100 11/30/19 11:45 73 17 46/28 (34) 71 11/30/19 11:42 59 16 48/18 (28) 62 11/30/19 11:39 57/23 11/30/19 11:35 110 11/30/19 11:30 86 18 57/23 (34) 100 11/30/19 11:15 100 18 65/31 (42) 100 11/30/19 11:00 102 17 67/26 (40) 100 11/30/19 10:45 104 17 68/28 (41) 100 11/30/19 10:42 105 20 100 11/30/19 10:30 108 15 65/33 (44) 100 11/30/19 10:15 109 17 58/30 (39) 100 11/30/19 10:00 112 17 67/31 (43) 100 11/30/19 09:56 112 17 69/30 (43) 100 11/30/19 09:46 110 11/30/19 09:45 100 11/30/19 09:45 109 17 64/32 (43) 100 11/30/19 09:40 99.0 96 22 94/69 100 Mechanical Ventilator 15.0 100 11/30/19 09:31 103 17 100 11/30/19 09:25 88/63 11/30/19 09:25 94/65 11/30/19 09:20 77/40 11/30/19 09:15 88/42 11/30/19 09:10 81/46 11/30/19 09:05 78/40 11/30/19 09:01 73/38 11/30/19 09:00 99.2 111 22 78/40 92 Mechanical Ventilator 15.0 100 11/30/19 08:49 136 18 100 11/30/19 08:00 99.0 95 21 65/39 100 Mechanical Ventilator 15.0 100 11/30/19 07:18 137 18 121/57 97 Mechanical Ventilator 100 11/30/19 07:13 21 63/13 78 Ambu-Bag 100 11/30/19 07:10 47 21 63/13 78 Ambu-Bag 100 6/17/20 07:05 15.0 100 11/30/19 07:00 99.0 71 15 96/69 Mechanical Ventilator 100 11/30/19 06:55 99.0 114 15 94/52 Mechanical Ventilator 100 11/30/19 06:53 127 21 100 11/30/19 06:15 99.0 45 15 53/33 Mechanical Ventilator 100 11/30/19 06:00 99.0 71 15 103/54 Mechanical Ventilator 100 11/30/19 05:58 108 15 100 11/30/19 05:51 Ambu-Bag 11/30/19 05:48 0 12 Ambu-Bag 15.0 Intake and Output 11/29/19 11/30/19 19:00 07:00 Output Total 100 ml Balance -100 ml Output Urine Total 100 ml Laboratory Tests Test 11/30/19 06:05 11/30/19 07:40 11/30/19 12:22 White Blood Count 21.2 K/UL (4.8-10.8) H Red Blood Count 2.49 M/UL (4.20-5.40) L Hemoglobin 7.1 G/DL (12.0-16.0) L Hematocrit 25.2 % (37.0-47.0) L Mean Corpuscular Volume 101 FL (80-99) H Mean Corpuscular Hemoglobin 28.5 PG (27.0-31.0) Mean Corpuscular Hemoglobin Concent 28.2 G/DL (32.0-36.0) L Red Cell Distribution Width 20.2 % (11.6-14.8) H Platelet Count 266 K/UL (150-450) Mean Platelet Volume 4.0 FL (6.5-10.1) L Neutrophils (%) (Auto) % (45.0-75.0) Lymphocytes (%) (Auto) % (20.0-45.0) Monocytes (%) (Auto) % (1.0-10.0) Eosinophils (%) (Auto) % (0.0-3.0) Basophils (%) (Auto) % (0.0-2.0) Differential Total Cells Counted 100 Neutrophils % (Manual) 24 % (45-75) L Lymphocytes % (Manual) 61 % (20-45) H Monocytes % (Manual) 11 % (1-10) H Eosinophils % (Manual) 2 % (0-3) Basophils % (Manual) 1 % (0-2) Band Neutrophils 1 % (0-8) Nucleated Red Blood Cells 3 /100 WBC Platelet Estimate Adequate Platelet Morphology Normal Polychromasia 1+ Hypochromasia 1+ Anisocytosis 2+ Macrocytosis 1+ Urine Color Pale yellow Urine Appearance Turbid Urine pH 9 (4.5-8.0) Urine Specific [place] 1.015 (1.005-1.035) Urine Protein 3+ (NEGATIVE) H Urine Glucose (UA) Negative (NEGATIVE) Urine Ketones Negative (NEGATIVE) Urine Blood 4+ (NEGATIVE) H Urine Nitrite Positive (NEGATIVE) H Urine Bilirubin Negative (NEGATIVE) Urine Urobilinogen Normal MG/DL (0.0-1.0) Urine Leukocyte Esterase 3+ (NEGATIVE) H Urine RBC 10-15 /HPF (0 - 2) H Urine WBC 5-10 /HPF (0 - 2) H Urine Squamous Epithelial Cells Few /LPF (NONE/OCC) Urine Uric Acid Crystals /LPF (NONE) Urine Triple Phosphate Crystals Moderate /LPF (NONE) H Urine Amorphous Sediment Many /LPF (NONE) H Urine Bacteria Moderate /HPF (NONE) H Sodium Level 138 MMOL/L (136-145) Potassium Level 5.2 MMOL/L (3.5-5.1) H Chloride Level 101 MMOL/L (98-107) Carbon Dioxide Level 21 MMOL/L (21-32) Anion Gap 16 mmol/L (5-15) H Blood Urea Nitrogen 32 mg/dL (7-18) H Creatinine 1.0 MG/DL (0.55-1.30) Estimat Glomerular Filtration Rate > 60 mL/min (>60) Glucose Level 322 MG/DL (74-106) H Lactic Acid Level 14.50 mmol/L (0.4-2.0) H 11.40 mmol/L (0.66-2.22) H Calcium Level 11.1 MG/DL (8.5-10.1) H Total Bilirubin 0.2 MG/DL (0.2-1.0) Aspartate Amino Transf (AST/SGOT) 152 U/L (15-37) H Alanine Aminotransferase (ALT/SGPT) 79 U/L (12-78) H Alkaline Phosphatase 166 U/L (46-116) H Troponin I 0.036 ng/mL (0.000-0.056) Pro-B-Type Natriuretic Peptide 2696 pg/mL (0-125) H Total Protein 6.7 G/DL (6.4-8.2) Albumin 1.4 G/DL (3.4-5.0) L Globulin 5.3 g/dL Albumin/Globulin Ratio 0.3 (1.0-2.7) L Arterial Blood pH 7.240 (7.350-7.450) Arterial Blood Partial Pressure CO2 39.2 mmHg (35.0-45.0) Arterial Blood Partial Pressure O2 175.6 mmHg (75.0-100.0) H Arterial Blood HCO3 16.4 mmol/L (22.0-26.0) *L Arterial Blood Oxygen Saturation 98.7 % (95-100) Arterial Blood Base Excess -10.1 (-2-2) *L Igor Test Positive Height (Feet): 5 Height (Inches): 6.00 Weight (Pounds): 157 Medications Current Medications Medications (Trade) Dose Ordered Sig/Gustavo Route PRN Reason Start Time Stop Time Status Last Admin Dose Admin Acetaminophen (Tylenol) 650 mg Q4H PRN ORAL fever 11/30/19 08:15 12/30/19 08:14 Albuterol/ Ipratropium (Albuterol/ Ipratropium) 3 ml Q4H PRN HHN Shortness of Breath 11/30/19 08:15 12/05/19 08:14 Dobutamine HCl 500 mg/Sodium Chloride 250 ml @ 0 mls/hr Q24H IV 11/30/19 06:30 12/30/19 06:29 11/30/19 07:40 Ertapenem 1 gm/ Sodium Chloride 55 ml @ 110 mls/hr Q24H IV 11/30/19 10:00 12/01/19 09:59 11/30/19 10:05 Heparin Sodium (Porcine) (Heparin 5000 units/ml) 5,000 units EVERY 12 HOURS SUBQ 11/30/19 09:00 01/14/20 08:59 Lorazepam (Ativan 2mg/ml 1ml) 2 mg Q2H PRN IV For Anxiety 11/30/19 08:15 12/07/19 08:14 Morphine Sulfate (Morphine Sulfate) 4 mg Q4H PRN IVP Severe Pain (Pain Scale 7-10) 11/30/19 08:15 12/07/19 08:14 Norepinephrine Bitartrate 8 mg/ Sodium Chloride 508 ml @ 0 mls/hr Q24H IV 12/01/19 10:00 12/30/19 09:59 UNV Ondansetron HCl (Zofran) 4 mg Q6H PRN IVP Nausea & Vomiting 11/30/19 08:15 12/30/19 08:14 Pantoprazole (Protonix) 40 mg DAILY IVP 11/30/19 09:00 12/30/19 08:59 11/30/19 10:02 Polyethylene Glycol (Miralax) 17 gm DAILYPRN PRN ORAL Constipation 11/30/19 08:15 12/30/19 08:14 Sodium Chloride 1,000 ml @ 100 mls/hr Q10H IVLG 11/30/19 09:00 12/30/19 08:59 11/30/19 10:03 Sodium Chloride 1,000 ml @ 999 mls/hr Q1H1M ONCE IV 11/30/19 12:15 11/30/19 13:15 11/30/19 12:26 Vancomycin HCl 1 gm/Dextrose 275 ml @ 183.3 mls/ hr Q24H IVPB 12/01/19 08:00 12/06/19 07:59 Assessment/Plan Assessment/Plan: Abx: IV Vancomcyin 11/29- Ertapenem 11/29- Amikacin x1 11/29 Zosyn x1 11/29 Assessment: s/p cardiac arrest VDRF SEptic shock UTI PNA- r/o COVID19 R/o probable bacteremia -CXR: Bilateral infiltrates and tiny left effusion. -u/a wbc 5-10, nit +, leuk +3, Afebrile Leukocytosis Elevated LFTs Lactic acidosis, improving HTN CVA/TIA seizure disorder dysphagia s/p [place] resident ([facility]) Plan: -COntinue empiric IV Vancomcyin #1 and switch Ertapenem to Meropenem -f/u cx -Monitor CBC/CMP, temperatures -COVID19 isolation and testing -ETT/ICU care -aspiration precautions -Now DNR/DNI Thank you for consulting [facility]. Will continue to follow along with you. Discussed with Erica Borges M.D. Nov 30, 2019 13:35
[2019-11-30] MEDS ORDERED: Atropine Inj 1mg/10ml Syr ONE (14:11)
[2019-11-30] MEDS ORDERED: Rx Monitoring Vancomycin MISC PRN (14:15)
--- NOTE | 2019-11-30 15:00 | History and Physical Report ---
DATE OF ADMISSION: 11/30/2019 CHIEF COMPLAINT: The patient is an 83-year-old female, who presents in cardiac arrest. HISTORY OF PRESENT ILLNESS: The patient is a resident of [facility]. The patient was noted to have agonal breathing earlier today. EMS was called. The patient arrested en route to the hospital. The patient received epinephrine x2 in the ambulance. When the patient arrived in the [place] emergency room, the patient was undergoing chest compressions. The patient was emergently intubated in the emergency room. The patient is admitted to the intensive care unit hypotensive after suffering cardiopulmonary arrest. REVIEW OF SYSTEMS: Unable to assess secondary to the patient's mental status. PAST MEDICAL HISTORY: Significant for: 1. Hypertension. 2. Hypercholesterolemia. 3. Cerebrovascular disease, status post cerebrovascular accident. 4. Seizure disorder. 5. Alzheimer's dementia. 6. Dysphagia. PAST SURGICAL HISTORY: Significant for PEG placement. CURRENT MEDICATIONS: 1. Tylenol 650 mg per G-tube q.4 h. p.r.n. 2. Aspirin 81 mg p.o. daily. 3. Atenolol 25 mg per G-tube daily. 4. Clonidine 0.1 mg per G-tube q.8 h. p.r.n. 5. Benazepril 10 mg per G-tube nightly. 6. Iron sulfate 325 mg per G-tube 3 times daily. 7. Heparin 5000 units subcutaneously twice daily. 8. Keppra 500 mg per G-tube twice daily. 9. Vitamin C 500 mg per G-tube twice daily. 10. Zinc sulfate 220 mg per G-tube p.o. daily. 11. Zofran 4 mg per G-tube 4 times daily. p.r.n. ALLERGIES: Levonorgestrel. SOCIAL HISTORY: The patient is . The patient denies tobacco or alcohol use. PHYSICAL EXAMINATION: VITAL SIGNS: Temperature 99, respirations 15, pulse 45 to 127, blood pressure 53 to 103/33 to 54. GENERAL: The patient is a well-developed, thin appearing, female, who is intubated and sedated. HEENT: Eyes, pupils are equal and responsive to light and accommodation. Extraocular movements are intact. NECK: Supple without lymphadenopathy. CHEST: Coarse breath sounds bilaterally. Mechanical vent sounds bilaterally. No wheezes or rales appreciated. CARDIOVASCULAR: Tachycardic, regular rhythm, S1-S2 are normal without murmurs, rubs, or gallops. ABDOMEN: Soft, nontender, and nondistended. Positive bowel sounds. No evidence of hepatosplenomegaly. Currently, no rebound or guarding noted. EXTREMITIES: Negative for clubbing, cyanosis, or edema. RECTAL/GENITAL: Not performed. NEUROLOGICAL: Unable to assess. LABORATORY STUDIES: WBC 21.2, hemoglobin 7.1, hematocrit 25.2, and platelets 266,000. Sodium 138, potassium 5.2, chloride 101, CO2 21, BUN 32, creatinine 1.0. Glucose 322. Lactic acid 14.5. Troponin 0.036. BNP elevated at 2696. Liver function tests elevated with AST of 152, ALT of 79, alkaline phosphatase of 166. Chest x-ray was reported as bilateral infiltrates. ASSESSMENT: This is an 83-year-old female with: 1. Status post cardiopulmonary arrest. 2. Bilateral pneumonia. 3. Hypertension. 4. Hypercholesterolemia. 5. Cerebrovascular disease. 6. Seizure disorder. 7. Alzheimer's dementia. 8. Dysphagia. TREATMENT: 1. Status post cardiopulmonary arrest. A Pulmonary consultation has been obtained with Dr. Chanel Gardiner. We will follow recommendations of Pulmonary. The patient is hypotensive and has been started on Levophed and dopamine. A Cardiology consultation has been obtained with Dr. Gregory Clancy. 2. Hypertension. The patient is currently hypotensive. 3. Hypercholesterolemia. 4. History of cerebrovascular disease. 5. Seizure disorder. Continue Keppra as above. 6. Alzheimer's dementia. 7. Dysphagia, status post PEG placement. 8. Pneumonia. The patient has been started empirically on intravenous amikacin and ertapenem. The patient's condition is extremely guarded. Kev Alegre M.D. DR: ALEX JOB#: [id number] CC: LENNOX
--- NOTE | 2019-11-30 15:08 | Emergency Room Report ---
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 COVID-19 Screening: PUI COVID-19 COVID-19 Testing Source: per facility 2 wks ago Patient History Now: No Nursing Documentation-PMH Hx Cardiac Problems: Yes Hx Hypertension: Yes Hx Asthma: No - Allergies Hx Cancer: No Hx Gastrointestinal Problems: No Hx Neurological Problems: Yes - stroke Hx Dementia: Yes Hx Seizures: Yes - Physical Exam Vital Signs Date Time Temp Pulse Resp B/P (MAP) Pulse Ox O2 Delivery O2 Flow Rate FiO2 11/30/19 05:48 0 12 Ambu-Bag 15.0 11/30/19 05:58 100 11/30/19 06:00 99.0 103/54 11/30/19 07:10 78 Medical Decision Making Diagnostic Impression: Primary Impression: Cardiac arrest Additional Impressions: Suspected 2018 novel coronavirus infection Sepsis UTI (urinary tract infection) Pneumonia ER Course I was contacted to evaluate the patient for . Patient had recent cardiac arrest. She was noted to have no spontaneous respirations. I patient's rhythm had been in asystole 1412. No spontaneous cardiac activity. Patient was pronounced . Family to be notified by staff. Last Vital Signs Date Time Temp Pulse Resp B/P (MAP) Pulse Ox O2 Delivery O2 Flow Rate FiO2 11/30/19 14:00 36/21 11/30/19 14:00 62 16 100 11/30/19 13:36 100 11/30/19 11:48 Mechanical Ventilator 11/30/19 09:40 99.0 15.0 Status: improved Disposition: Condition: Referrals: NON PHYSICIAN (PCP) Denys Erickson MD Nov 30, 2019 15:08
[2019-11-30] MEDS ORDERED: Meropenem 1 GM in NS 55 ML IVPB SCH (16:00)
[2019-12-01] MEDS ORDERED: Vancomycin 1 GM in D5W 275 ML IVPB SCH (08:00)
--- NOTE | 2019-12-01 15:44 | Discharge Summary ---
Discharge Summary Discharge Summary _ SUMMARY DATE OF ADMISSION: 11/30/2019 DATE OF EXPIRATION: 11/30/2019 REASON FOR ADMISSION: 83 years old female with past medical history of CVA, dysphagia, feeding by G- tube, resident of shelter facility was brought by paramedics in cardiac arrest. Apparently at the senior living patient had agonal breathing earlier in the morning. Patient went to cardiac arrest into the route to the hospital. Patient received epi x2 ,. Chest compression started, ACLS protocol initiated. In emergency department patient was orally intubated, started on Levophed drip , pancultured received fluids, started on empiric antibiotic and transferred to ICU for further management. CONSULTANTS: pulmonary Dr. Gardiner ID specialist Dr. Brown [facility] COURSE: Patient admitted to ICU . Ventilator support and pulmonary toilet provided . Hemodynamic status was closely monitored. Pressors titrated to keep mean arterial blood pressure above 65. Patient remains on dobutamine and Levophed. Echocardiogram demonstrated preserved ejection fraction of 55 to 60% with severe left ventricular hypertrophy. No evidence of wall motion abnormality. Moderate aortic regurgitation. Moderate tricuspid regurgitation. Right ventricular systolic pressure of 68 consistent with severe pulmonary hypertension. Empiric antibiotics provided as per ID specialist recommendation. Blood culture revealed gram-negative rods, urine culture revealed no reportable results. SARS COV2 on 11/29 was not detected. Patient's condition continued to deteriorate . CODE STATUS was changed to DNR/DNI on 11/29 later that day per family wishes. Patient subsequently was pronounced at 14:12 on 11/29 . Cause of : cardiopulmonary arrest FINAL DIAGNOSES: Status post cardiopulmonary arrest Acute hypoxemic respiratory failure , requiring intubation Sepsis with gram-negative bacteremia Septic shock Lactic acidosis Pneumonia UTI Acute kidney injury History of hypertension COPD Seizure disorder Dysphagia feeding by G-tube History of CVA Alzheimer dementia Suspected COVID-19 -ruled out I have been assigned to dictate discharge summary for this account. I was not involved in the patient's management. Ronel Manzanares NP Dec 01, 2019 15:44
== END 2019-11-30 14:12 | disposition expired | DRG 871 ==
LOC: EDBD 05:48 → EDBEDREQ 06:04 → EMR 06:15 → EDBEDREQ 07:05 → ICU 07:28
DX: A41.9 Sepsis, unspecified organism (principal); J18.9 Pneumonia, unspecified organism; R65.21 Severe sepsis with septic shock; J96.01 Acute respiratory failure with hypoxia; N39.0 Urinary tract infection, site not specified; I46.9 Cardiac arrest, cause unspecified; I10 Essential (primary) hypertension; E78.00 Pure hypercholesterolemia, unspecified; G40.909 Epilepsy, unspecified, not intractable, without status epilepticus; G30.9 Alzheimer's disease, unspecified; F02.80 Dementia in other diseases classified elsewhere, unspecified severity, without behavioral disturbance, psychotic disturbance, mood disturbance, and anxiety; R13.10 Dysphagia, unspecified; Z93.1 Gastrostomy status; Z86.73 Personal history of transient ischemic attack (TIA), and cerebral infarction without residual deficits; Z88.8 Allergy status to other drugs, medicaments and biological substances; Z79.02 Long term (current) use of antithrombotics/antiplatelets; Z66 Do not resuscitate; I35.1 Nonrheumatic aortic (valve) insufficiency; I36.1 Nonrheumatic tricuspid (valve) insufficiency; I27.20 Pulmonary hypertension, unspecified
CPT/HCPCS: 31500; 36415; 36600; 71045; 80053; 81003; 82803; 83605; 83880; 84484; 85007; 85025; 87040; 87086; 87181; 93005; 93306; 94002; 94003; 96361; 96365; 96368; 99291; J0171; J2370; J7030